=== PATIENT | female | born 1950 | race African-American/Black ===

== ENCOUNTER 2017-12-12 21:27 | Inpatient (IN) | payer OTHER, MEDICARE ==
[~2017-12-12] VITALS: Ht 154.9 cm; Wt 67.1 kg
--- NOTE | 2017-12-12 21:32 | ED NEURO DEFICIT/STROKE ---
History of Present Illness General Chief Complaint: Neuro Symptoms/ Deficit Stated Complaint: BIBA FOR EVAL ? STROKE Source: patient, family, old records, EMS Exam Limitations: no limitations Vital Signs & Intake/Output Vital Signs & Intake/Output Vital Signs Date Time Temp Pulse Resp B/P B/P Pulse O2 O2 Flow FiO2 Mean Ox Delivery Rate 12/125 98.7 74 16 206/92 96 Room Air 12/12 2246 98.5 68 16 218/98 12/12 2213 68 16 218/98 98 Room Air 12/12 2205 98.5 70 16 240/110 12/12 2150 98.5 70 16 240/110 95 Room Air 12/12 2128 85 18 188/110 96 Room Air Allergies Coded Allergies: No Known Allergies (12/12/17) Triage Nurses Notes Reviewed? yes HPI: Patient brought in by ambulance with complaints of inability to move the right side of her body. Patient states that at approximately 4:30 this afternoon she was sitting on her porch and noticed that her right side felt weak. Patient was able to get up and go inside and she laid in bed. Today she got up to go to the bathroom and realized that she cannot move the right side of her body and also should call 911. Patient states that she has a history of hypertension but she has been taking her medications and that she had a stroke 15 years ago and was treated at [facility] but she does not have any residual symptoms after that. Patient denies any headache or blurry vision. There is no nausea or vomiting. There is no chest pain or shortness of breath. Past History Travel History Traveled to [place] past 21 day No Medical History Any Pertinent Medical History? see below for history Neurological: CVA Cardiovascular: hypertension Surgical History Surgical History: none Psychosocial History Tobacco Use: Quit >30 days ago ETOH Use: occasional use Illicit Drug Use: denies illicit drug use Family History Hx Contributory? No Review of Systems Review of Systems Constitutional: Reports: no symptoms. EENTM: Reports: no symptoms. Respiratory: Reports: no symptoms. Cardiovascular: Reports: no symptoms. GI: Reports: no symptoms. Genitourinary: Reports: no symptoms. Musculoskeletal: Reports: no symptoms. Skin: Reports: no symptoms. Neurological/Psychological: Reports: see HPI. Hematologic/Endocrine: Reports: no symptoms. Immunologic/Allergic: Reports: no symptoms. All Other Systems: Reviewed and Negative Physical Exam Physical Exam General Appearance: well developed/nourished, alert, awake, anxious, moderate distress Head: atraumatic, normal appearance Eyes: Bilateral: PERRL, EOMI. Ears, Nose, Throat: moist mucous membrane, hearing grossly normal Neck: normal inspection, supple, full range of motion Respiratory: normal breath sounds, chest non-tender, no respiratory distress, lungs clear Cardiovascular: regular rate/rhythm, normal peripheral pulses Gastrointestinal: normal bowel sounds, soft, non-tender, no organomegaly Back: normal inspection Extremities: normal range of motion Psychiatric: awake, alert, oriented x 3 Cranial Nerves: normal hearing, normal speech, PERRL, facial droop Motor/Sensory: weak motor strength RUE, weak motor strength RLE Core Measures CVA/TIA Diagnosis: Yes NIH Stroke Scale NIH Stroke Scale Response Value Level of Consciousness alert 0 LOC Questions answers both correctly 0 LOC Commands obeys both correctly 0 Best Gaze normal 0 Visual Mckeon no visual loss 0 Facial Paresis partial 2 Motor Arm - Left no drift 0 Motor Arm - Right no movement 4 Motor Leg - Left no drift 0 Motor Leg - Right no movement 4 Limb Ataxia present in two limbs 2 Sensory normal 0 Best Language no aphasia 0 Dysarthria normal articulation 0 Extinction and Inattention no neglect 0 Total 12 Date Last Known Well: 12/12/17 Time Last Known Well: 1629 Symptom Start Date: 12/12/17 Symptom Start Time: 1629 tPA Risk/Benefit discussion I have discussed the risks, benefits, and alternatives of Alteplase treatment including: - If given promptly, can resolve or have major improvement in stroke symptoms. - Bleeding (hemorrhage) is the most common risk that can occur. - Bleeding may occur into the brain and cause~rn long term care serious disability~ including - this is rare, affecting about 1% of patients. - Alternative treatments with proven benefit for patients with stroke include aspirin and care in a specialized unit where staff members pay careful attention to a variety of basic aspects of care. tPA given? No Reason tPA not given Medical Contraindication Swallow Evaluation Pass Swallow eval date 12/12/17 Swallow eval time 2231 Sepsis Present: No Sepsis Focused Exam Completed? No Progress Differential Diagnosis: electrolyte imbalance, intracranial Hem., intracranial mass/tumor, stroke, subarachnoid Hem. Plan of Care: Orders Procedure Date/time Status Heart Healthy Diet 12/13 B Active ED Holding Orders 12/12 2320 Active Admit to inpatient 12/12 2320 Active Vital Signs 12/12 2320 Active Code Status 12/12 2320 Active Telemetry/Service Station Cashier 12/12 2129 Active URINALYSIS 12/12 2129 Complete TROPONIN LEVEL 12/12 2129 Complete PARTIAL THROMBOPLASTIN TIME 12/12 2129 Complete PROTHROMBIN TIME 12/12 2129 Complete COMPREHENSIVE METABOLIC PANEL 12/12 2129 Complete CBC WITHOUT DIFFERENTIAL 12/12 2129 Complete EKG 12/12 2129 Active Laboratory Tests 12/12/172229: Urine Color YEL, Urine Clarity CLEAR, Urine pH 8.0, Ur Specific [place] 1.025, Urine Protein 100 H, Urine Ketones NEG, Urine Nitrite NEG, Urine Bilirubin NEG, Urine Urobilinogen 0.2, Ur Leukocyte Esterase NEG, Ur Microscopic SEDIMENT EXAMINED, Urine RBC FEW H, Urine WBC 1-3 H, Ur Epithelial Cells FEW, Urine Bacteria RARE H, Urine Hemoglobin TRACE-INTACT, Urine Glucose NEG 12/12/172209: Anion Gap 7, Estimated GFR 50 L, BUN/Creatinine Ratio 15.5, Glucose 113 H, Calcium 8.8, Total Bilirubin 0.5, AST 27, ALT 25, Alkaline Phosphatase 76, Troponin I < 0.01, Total Protein 6.2 L, Albumin 3.3 L, Globulin 2.9, Albumin/ Globulin Ratio 1.1 12/12/172133: PT 11.7, INR 1.07, APTT 35, CBC w Diff MAN DIFF ORDERED, RBC 5.68 H, MCV 79.5 L, MCH 26.1 L, MCHC 32.9 L, RDW 18.8 H, MPV 9.3, Segmented Neutrophils 45, Lymphocytes 44, Monocytes 10 H, Eosinophils 1, Platelet Estimate VERIFIED BY SMEAR, Anisocytosis 1+, Target Cells FEW, Fld Total RBCs Counted 100 Diagnostic Imaging: Viewed by Me: Radiology Read, CT Scan. Discussed w/RAD: Radiology Read, CT Scan. Pre-Hospital EKG: NSR, LVH Initial ED EKG: NSR, LVH, nonspecific ST T wave chg Rhythm Strip: normal sinus rhythm Comments: Discussed with Dr. Cano, patient is not a candidate for TPA given the timing. Her symptoms are consistent with small vessel disease and a quarter infarct given the fact that she has normal speech and if this was a true left middle cerebral artery infarction then she would be a phasic or have severe dysarthria. PATIENT: DEANN SIMMONS PRESENT AGE: 67 PATIENT ACCOUNT NO: [id number] : 52 LOCATION: [facility] ORDERING PHYSICIAN: Silvio Carroll MD SERVICE DATE: 12/12/17 EXAM TYPE: CAT - CT HEAD WO IV CONTRAST EXAMINATION: CT HEAD WITHOUT CONTRAST CLINICAL INFORMATION: Evaluate for acute stroke. COMPARISON: None TECHNIQUE: Contiguous axial imaging was performed from the skull base to vertex without intravenous administration of contrast. DLP: 646.3 mGy-cm FINDINGS: There is encephalomalacia in the posteromedial left parietal lobe and left occipital lobe from a chronic infarct. Moderate to severe chronic white matter microangiopathic changes are present. There is no evidence of acute intracranial hemorrhage or territorial infarction. No abnormal mass effect or midline shift is seen. No extra-axial fluid collections are identified. The ventricles are normal in size. The osseous structures and soft tissues are normal. The mastoid air cells and visualized portions of the paranasal sinuses are well aerated. IMPRESSION: No acute intracranial hemorrhage or territorial infarction. Chronic infarct in the posteromedial left parietal lobe and left occipital lobe. Given the extent of severe chronic white matter microangiopathy, the possibility of a focal acute ischemic process cannot be ruled out. Imaging findings discussed with Dr. Carroll at 9:54 PM on 12/12/2017. DICTATED BY: Silvio Vuong MD DATE/TIME DICTATED:12/12/172145 FRONT END SOFTWARE ENGINEER:BUDDY DATE/TIME TRANSCRIBED:12/12/172145 CONFIDENTIAL, DO NOT COPY WITHOUT APPROPRIATE AUTHORIZATION. <Electronically signed in Other Vendor System> SIGNED BY: Silvio Vuong MD 2154 Departure Departure Disposition: STILL A PATIENT Condition: Stable Clinical Impression Primary Impression: CVA (cerebral vascular accident) Departure Forms: Customer Survey General Discharge Information Admission Note Spoke With: Fernando Patel MD Documentation of Exam: Documentation of any treatments & extenuating circumstances including Concerns Regarding Discharge (functional status, medication knowledge or non-compliance, living conditions, etc.) that warrant an admission rather than observation: [ ADMIT TO TELE, NEURO CONSULT, PHYSICAL THERAPY AND OT CONSULT, ASA, B/P CONTROL BUT ALLOW PASSIVE HYPERTENSION, MRI]
[2017-12-12 21:46] LABS: HEMATOCRIT 45.1 % (37-47); MEAN CORPUSCULAR HGB 26.1 PG (27.0-31.0); MEAN CORPUSCULAR HGB CONC 32.9 G/DL (33.0-37.0); MEAN CORPUSCULAR VOLUME 79.5 FL (81.0-99.0); MEAN PLATELET VOLUME 9.3 FL (7.4-10.4); PLATELET COUNT 284 /CUMM (130-400); RBC DISTRIBUTION WIDTH 18.8 % (11.5-14.5); RED BLOOD CELL CT 5.68 /CUMM (4.20-5.40)
[2017-12-12 21:55] LABS: PT 11.7 SEC (9.4-12.5); PTT 35 SEC (25-37)
--- NOTE | 2017-12-12 21:55 | CT SCAN REPORT ---
EXAMINATION: CT HEAD WITHOUT CONTRAST CLINICAL INFORMATION: Evaluate for acute stroke. COMPARISON: None TECHNIQUE: Contiguous axial imaging was performed from the skull base to vertex without intravenous administration of contrast. DLP: 646.3 mGy-cm FINDINGS: There is encephalomalacia in the posteromedial left parietal lobe and left occipital lobe from a chronic infarct. Moderate to severe chronic white matter microangiopathic changes are present. There is no evidence of acute intracranial hemorrhage or territorial infarction. No abnormal mass effect or midline shift is seen. No extra-axial fluid collections are identified. The ventricles are normal in size. The osseous structures and soft tissues are normal. The mastoid air cells and visualized portions of the paranasal sinuses are well aerated. IMPRESSION: No acute intracranial hemorrhage or territorial infarction. Chronic infarct in the posteromedial left parietal lobe and left occipital lobe. Given the extent of severe chronic white matter microangiopathy, the possibility of a focal acute ischemic process cannot be ruled out. Imaging findings discussed with Dr. Carroll at 9:54 PM on 12/12/2017.
--- NOTE | 2017-12-12 23:17 | RADIOLOGY REPORT ---
EXAMINATION: XR PORTABLE CHEST CLINICAL INFORMATION: Cough. COMPARISON: None TECHNIQUE: Portable frontal view of the chest was obtained. 10:39 PM FINDINGS: The heart size is enlarged. There is calcifications of aortic arch. The central hilar pulmonary vessels are prominent with increased lung markings suggesting interstitial edema versus chronic interstitial lung markings. There is no pleural effusion. There is no focal consolidation. IMPRESSION: Cardiomegaly with central pulmonary vascular prominence and increased lung markings, likely interstitial edema. There is no focal consolidation.
--- NOTE | 2017-12-13 00:29 | History & Physical ---
Gordo Mercado 12/13/17 0028: General Information and HPI MD Statement: I have seen and personally examined DEANN SIMMONS and documented this H&P. The patient is a 67 year old F who presented with a patient stated chief complaint of [Right-sided weakness]. Source of Information: patient Exam Limitations: clinical condition History of Present Illness: 67 year old female with pmh of HTN as well as prior stroke 15 years ago without residual deficits, presents to the ED today with new-onset right-sided weakness and slurring of speech. The patient had been sitting at home when she first noticed numbness on her right side around 0, which soon resolved. She then went to lie down and when she awoke around 2029, she could not move her right side and called an ambulance. She denied headache, loss of vision, word-finding difficulty. She reports that she regularly takes her blood pressure medicine, but admits that she ran out and had been unable to get a refill for the past month. She is a current smoker, recently cut down to 3 cigarettes per day but previously smoked ~2 packs per week for 30 years. She admits to occasional ETOH use, drinking wine coolers on special occasions, admits to former cocaine use. Allergies/Medications Allergies: Coded Allergies: No Known Allergies (12/12/17) Home Med list Amlodipine Besylate (Norvasc) 10 MG TABLET 1 TAB PO DAILY HTN (Reported) Furosemide (Lasix) 40 MG TABLET 1 TAB PO DAILY HTN (Reported) Losartan (Cozaar) 100 MG TABLET 1 TAB PO DAILY HTN (Reported) Compliance With Home Meds: POOR Past History Travel History Traveled to [place] past 21 day No Medical History Neurological: CVA EENT: NONE Cardiovascular: hypertension Respiratory: asthma, COPD, pneumonia Gastrointestinal: NONE Hepatic: NONE Renal: NONE Musculoskeletal: NONE Psychiatric: substance abuse Endocrine: NONE Surgical History Surgical History: none Past Family/Social History Psychosocial History ETOH Use: occasional use Illicit Drug Use: denies illicit drug use Review of Systems Review of Systems Constitutional: Reports: weakness. Denies: chills, fever. Exam & Diagnostic Data Last 24 Hrs of Vital Signs/I&O Vital Signs Date Time Temp Pulse Resp B/P B/P Pulse O2 O2 Flow FiO2 Mean Ox Delivery Rate 12/13 0250 72 222/96 12/13 0206 96.4 94 20 222/96 96 Room Air 12/12 2330 72 16 190/90 98 Room Air 12/12 2255 98.7 74 16 206/92 96 Room Air 12/12 2246 98.5 68 16 218/98 12/12 2213 68 16 218/98 98 Room Air 12/12 2205 98.5 70 16 240/110 12/12 2150 98.5 70 16 240/110 95 Room Air 12/12 2130 98 Room Air 12/12 2128 85 18 188/110 96 Room Air Intake & Output 12/13 0800 12/13 0000 12/12 1600 Intake Total Output Total Balance Patient 65.771 kg Weight Physical Exam General Appearance Alert, Oriented X3, Cooperative, No Acute Distress HEENT PERRLA, Mild facial droop on the R Neck Supple, No JVD, +2 Carotid Pulse wo Bruit Cardiovascular Regular Rate, Normal S1, Normal S2, No Murmurs Lungs Clear to Auscultation, Normal Air Movement Abdomen Normal Bowel Sounds, Soft, No Tenderness Neurological Sensation Intact, RUE strength 2/5, RLE 0/5; LUE and LLE 5/5 Extremities No Clubbing, No Cyanosis, No Edema Last 24 Hrs of Labs/Jf: Laboratory Tests 12/12/172229: Urine Color YEL, Urine Clarity CLEAR, Urine pH 8.0, Ur Specific [place] 1.025, Urine Protein 100 H, Urine Ketones NEG, Urine Nitrite NEG, Urine Bilirubin NEG, Urine Urobilinogen 0.2, Ur Leukocyte Esterase NEG, Ur Microscopic SEDIMENT EXAMINED, Urine RBC FEW H, Urine WBC 1-3 H, Ur Epithelial Cells FEW, Urine Bacteria RARE H, Urine Hemoglobin TRACE-INTACT, Urine Glucose NEG 12/12/172209: Anion Gap 7, Estimated GFR 50 L, BUN/Creatinine Ratio 15.5, Glucose 113 H, Calcium 8.8, Total Bilirubin 0.5, AST 27, ALT 25, Alkaline Phosphatase 76, Troponin I < 0.01, Total Protein 6.2 L, Albumin 3.3 L, Globulin 2.9, Albumin/ Globulin Ratio 1.1 12/12/172133: PT 11.7, INR 1.07, APTT 35, CBC w Diff MAN DIFF ORDERED, RBC 5.68 H, MCV 79.5 L, MCH 26.1 L, MCHC 32.9 L, RDW 18.8 H, MPV 9.3, Segmented Neutrophils 45, Lymphocytes 44, Monocytes 10 H, Eosinophils 1, Platelet Estimate VERIFIED BY SMEAR, Anisocytosis 1+, Target Cells FEW, Fld Total RBCs Counted 100 Assessment/Plan Assessment: 67 year old female PMH of HTN and previous stroke 15 years ago without residual deficits presents with R-sided weakness and slurring of speech, likely acute ischemic stroke. CT Head: No acute intracranial hemorrhage or territorial infarction. Chronic infarct in the posteromedial left parietal lobe and left occipital lobe. Possibility of a focal acute ischemic process cannot be ruled out. Problems: #Acute ischemic stroke #HTN #Active tobacco use Plan: -Admit to telemetry -Patient passed bedside swallow eval, ok to start diet -Follow-up speech swallow eval -Neurology consult -Permissive hypertension -MRA head & neck--not done Tuesdays so repeat CT head to monitor for evolving stroke -Nicotine patch & smoking cessation Full code Heart healthy diet ALPS & on Plavix for DVT ppx As Ranked By This Provider Problem List: 1. CVA (cerebral vascular accident) 2. Hypertension Core Measures/Misc (12/12) Acute Coronary Syndrome ACS Diagnosis: No Congestive Heart Failure Congestive Heart Failure Diagnosis No Cerebrovascular Accident CVA/TIA Diagnosis: Yes NIH Stroke Scale: Total 10 Date Last Known Well: 12/12/17 Time Last Known Well: 1630 Symptom Start Date: 12/12/17 Symptom Start Time: 1630 tPA Risk/Benefit discussion I have discussed the risks, benefits, and alternatives of Alteplase treatment including: - If given promptly, can resolve or have major improvement in stroke symptoms. - Bleeding (hemorrhage) is the most common risk that can occur. - Bleeding may occur into the brain and cause~correction serious disability~ including - this is rare, affecting about 1% of patients. - Alternative treatments with proven benefit for patients with stroke include aspirin and care in a specialized unit where staff members pay careful attention to a variety of basic aspects of care. tPA given? No Reason tPA not ordered Medical Contraindication (outside of window) Swallow Evaluation Pass Current/Past Hx AFib/AFlutter No Comment Given aspirin, plavix, lipitor VTE (View Protocol) VTE Risk Factors Age>40 No Mechanical VTE Prophylaxis d/t N/A MechProphylax Ordered No VTE Pharm Prophylaxis d/t NA PharmProphylax ordered Sepsis (View protocol) Sepsis Present: No If YES complete Sepsis Event Note If YES complete Sepsis Event Note Fernando Patel 12/13/17 0250: Core Measures/Misc (12/12) Sepsis (View protocol) If YES complete Sepsis Event Note If YES complete Sepsis Event Note Attending MD Review Statement Attending Statement Attending MD Statement: examined this patient, discuss w/resident/PA/[employer]ALL[employer] PEN CARTRIDGE TESTER, agreed w/resident/PA/[employer]ALL[employer] PEN CARTRIDGE TESTER Attending Assessment/Plan: Addendum by . Patient was seen and examined at bedside today ( 12/13/17 ) at !;30Am. Reviewed the history physical done by the resident. Reviewed the past medical family, family, social history. ROS: 10 point system reviewed and negative except as described above. Exam: Alert, awake, has slurred speech. Loss of right nasolabial fold. urrently her power is 0/5 in right leg, and 2/ 5 the proximal right upper extremity, 0/5 distal extremity, normal sensation. Increased reflexes right upper and lower extremity. Plantar reflex was withdrawal. See the resident note for full examination. X-ray, EKG, CT brain, labs reviewed. Assessment and plan: #Acute ischemic stroke involving posteromedial left parietal lobe and left occipital lobe. Causing right hemiparesis. Due to uncontrolled hypertension. Patient states she was taking aspirin daily. She was out of window for TPA on presentation as per the ER. Spoke to neurology from ER. For now will continue on aspirin, Plavix. Also high-dose statin. Permissive hypertension, not treated unless blood pressure is 220/100. C. She passed a swallow evaluation in the ER. will get PT OT evaluation in a.m., also get spell evaluation by swallow therapist. Needs risk factor modification on the long run. Neurology to see in the morning. Get carotid Dopplers in the morning. Patient needs MRA neck and brain, MRA brain when that can be done. Check A1c, lipid panel. Monitor on telemetry. #Hypertension-patient was not taking her blood pressure medications regularly. I think her stroke is likely due to uncontrolled hypertension due to noncompliance. Can resume home medications after 48 hours, also add additional medications if needed for better blood pressure control. #Smoker smoking cessation was advised, give nicotine patch. Reviewed with the resident. Agree with the rest of the plan as per resident's note. Dr.Ravinder Mary Jane MD. Hospitalist. Pager: [phone], cell: [phone]. Yusuf Bender MD 12/13/17 0329: Core Measures/Misc (12/12) Sepsis (View protocol) If YES complete Sepsis Event Note If YES complete Sepsis Event Note Resident Review Statement Resident Statement: examined this patient, discussed with digital intern, agreed with digital intern, reviewed EMR data (avail), amended to note Other Findings: Patient is a 67-year-old female with past medical history of stroke 15 years ago without residual side effects, hypertension, asthma presenting this admission with chief complaint of inability to move right upper and lower extremities. Patient reports that at approximately 4:30 in the afternoon on day of admission she experienced inability to move her right arm and right leg which she stated was transient. After which she continued her normal routine and went to bed at approximately 8:30 PM and awoke an hour later to find that she was unable to move her right side and was also slurring her speech. Patient denies any numbness or tingling, dysphagia, change in vision, word finding difficulty, headache, nausea/vomiting. Denies fever, chills, chest pain, shortness of breath, palpitations, dizziness/lightheadedness, abdominal pain, dysuria/ hematuria, bowel or bladder incontinence, constipation/diarrhea. Patient reports that she has a history of hypertension for which she is on amlodipine, losartan, furosemide. Reports that she ran out of her medications one month prior to admission however didn't take some old prescription however does not remember what medication. Patient states that her blood pressure over the past few days has been elevated to the 190s systolic. Neurology was consulted in the ED and patient was not given TPA as she was out of the window. Patient in the ED received hydralazine 10 mg, labetalol 10 mg, aspirin 325 mg Past medical history: As above Social history: Patient is a current 1 pack per day smoker, occasional alcohol use, previous history of cocaine use Physical exam and labs/imaging as above Patient is a 67-year-old -Swiss female who is a current every day smoker with past medical history significant for uncontrolled hypertension and history of previous stroke without residual effects presenting this admission with a lacunar infarct (likely secondary to uncontrolled hypertension) with right hemiparesis, right-sided facial droop and dysarthria and CT scan showing no acute infarct/hemorrhage but a chronic infarct in the posteromedial left parietal lobe and left occipital lobe. Plan: Admit to telemetry Continuous telemetry monitoring Neurochecks every 2 hours Aspiration and fall precautions A bedside swallow evaluation was performed which patient passed Formal swallow eval placed Neuro consult placed PT/OT consulted Patient received high-dose aspirin 1 in the ED. Patient was started on Plavix and aspirin was continued. Patient was started on high-dose atorvastatin 80 mg daily Smoking cessation counseling Nicotine patch Follow-up lipid panel and hemoglobin A1c MRA of the head and neck ordered. However as this likely will not happen today consider repeat CT head to evaluate for evolving stroke. Carotid Dopplers have been ordered. Continue to monitor blood pressure and allow for permissive hypertension. Resume home blood pressure medications after 48 hours. Code: Full code Diet: Heart healthy DVT prophylaxis: Alps
[2017-12-13 05:49] LABS: HEMATOCRIT 43.9 % (37-47); MEAN CORPUSCULAR HGB 26.1 PG (27.0-31.0); PLATELET COUNT 272 /CUMM (130-400); RBC DISTRIBUTION WIDTH 18.5 % (11.5-14.5); RED BLOOD CELL CT 5.56 /CUMM (4.20-5.40)
[2017-12-13] MEDS ORDERED: NORVASC10 M1 PO (07:29)
[2017-12-13] MEDS ORDERED: COZAAR100 M1 PO (07:30)
[2017-12-13] MEDS ORDERED: LASIX40 M1 PO (07:31)
--- NOTE | 2017-12-13 09:36 | Cons- Neurology ---
General Information and HPI Consulting Request Date of Consult: 12/13/17 Requested By: Ana Rossi MD Reason for Consult: CVA Source of Information: patient History of Present Illness: 67-year-old right-handed woman states she was sitting on her porch around 430 yesterday when her right side became weak. Symptoms subsequently improved over a matter of minutes but later recurred/worsened around 9 pm and prompted her to come to the ED. Speeech has been slurred. She has a history of prior left parietal and occipital strokes from which she clinically recovered. She states that she takes aspirin on a daily basis. She states that she takes antihypertensive medications but missed several doses recently. she is a longtime cigarette smoker. Urine tox screen was positive for cocaine. She states she used cocaine several days ago at a alliance party. She states that she was planning to go to [facility] to help her overcome this apparent addiction. Lives w/ landlord. 5 entrance steps w/ railing. Allergies/Medications Allergies: Coded Allergies: No Known Allergies (12/12/17) Home Med List: Amlodipine Besylate (Norvasc) 10 MG TABLET 1 TAB PO DAILY HTN (Reported) Furosemide (Lasix) 40 MG TABLET 1 TAB PO DAILY HTN (Reported) Losartan (Cozaar) 100 MG TABLET 1 TAB PO DAILY HTN (Reported) Current Medications: Current Medications Sig/[place] Start time Last Medication Dose Route Stop Time Status Admin Acetaminophen 650 MG Q6P PRN 12/13 0115 AC PO Acetaminophen 1,000 MG Q6 PRN 12/13 0115 AC IV Albuterol Sulfate 3 ML ONCE ONE 12/12 2345 DC 12/12 INH 12/12 2346 2342 Amlodipine Besylate 10 MG DAILY 12/13 0745 AC PO Aspirin 325 MG ONCE ONE 12/12 2245 DC 12/12 PO 12/12 2246 2246 Aspirin 0 .STK-MED ONE 12/12 2244 DC PO Aspirin Buffered 81 MG DAILY 12/13 0900 DC PO Aspirin Buffered 325 MG DAILY 12/13 0900 AC PO Atorvastatin Calcium 80 MG 1700 12/13 1700 DC PO Atorvastatin Calcium 80 MG 1700 12/13 0700 AC PO Clopidogrel Bisulfate 0 .STK-MED ONE 12/13 0250 DC PO Clopidogrel Bisulfate 75 MG ONCE ONE 12/13 0230 DC 12/13 PO 12/13 0231 0250 Dextrose/Sodium 1,000 ML SEE RATE 12/13 0115 DC Chloride IV Docusate Sodium 100 MG DAILY NEEDED 12/13 0115 AC PO Hydralazine HCl 10 MG ONCE ONE 12/12 2244 DC 12/12 IV 12/12 Hydralazine HCl 0 .STK-MED ONE 12/12 224 DC .ROUTE Labetalol HCl 0 .STK-MED ONE 12/13 0250 DC IV Labetalol HCl 10 MG ONCE ONE 12/13 0230 CAN IV 12/13 0231 Labetalol HCl 10 MG ONCE ONE 12/13 0230 DC 12/13 IV 12/13 0231 0250 Labetalol HCl 0 .STK-MED ONE 12/12 2206 DC IV Labetalol HCl 10 MG ONCE ONE 12/12 2199 DC 12/12 IV 12/12 Melatonin 0 .STK-MED ONE 12/13 0157 DC PO Melatonin 5 MG AT BEDTIME 12/13 0115 AC 12/13 PO 0156 Nicotine 14 MG DAILY 12/13 0900 AC TOP Polyethylene Glycol 17 GM AT BEDTIME 12/13 2100 AC PO Potassium Chloride 20 MEQ ONCE ONE 12/13 0730 DC PO 12/13 0731 Past History Travel History Traveled to [place] past 21 day No Medical History Neurological: CVA EENT: NONE Cardiovascular: hypertension Respiratory: asthma, COPD, pneumonia Gastrointestinal: NONE Hepatic: NONE Renal: NONE Musculoskeletal: NONE Psychiatric: NONE (cocaine), substance abuse Endocrine: NONE Surgical History Surgical History: none Psychosocial History Where Do You Live? Home Smoking Status: Current Everyday Smoker ETOH Use: occasional use Illicit Drug Use: cocaine (on tox screen) Exam & Diagnostic Data Vital Signs and I&O Vital Signs Date Time Temp Pulse Resp B/P B/P Pulse O2 O2 Flow FiO2 Mean Ox Delivery Rate 12/13 0814 97.6 76 18 194/94 98 Room Air 12/13 0515 96.8 71 18 210/102 99 Room Air 12/13 0345 72 20 192/100 92 Room Air 12/13 0250 72 222/96 12/13 0206 96.4 94 20 222/96 96 Room Air 12/12 2330 72 16 190/90 98 Room Air 12/12 2255 98.7 74 16 206/92 96 Room Air 12/12 2246 98.5 68 16 218/98 12/123 68 16 218/98 98 Room Air 12/125 98.5 70 16 240/110 12/12 2150 98.5 70 16 240/110 95 Room Air 12/12 2130 98 Room Air 12/12 2128 85 18 188/110 96 Room Air Intake & Output 12/13 1600 12/13 0800 12/13 0000 Intake Total Output Total Balance Patient 145 lb 145 lb Weight Physical Exam: PHYSICAL EXAMINATION: nl = normal NT or blank = not tested GENERAL Appearance: nl Head: nl Eyes: nl ENT: nl Neck: nl Carotids: nl Lungs: nl Heart: nl Extremities: nl NEUROLOGIC MENTAL STATUS Level of consciousness: nl Orientation: nl Attention / Concentration: nl Fund of Knowledge: nl Speech / Language: Mild to moderate dysarthria NEUROLOGIC CRANIAL NERVES I: Olfaction: NT II: Optic nerves: nl Visual abrker: nl III: Pupils: nl Levator palpebrae: nl III, IV, : Ocular alignment: nl Extraocular motility: nl Pursuits/ saccades: nl V: Facial sensation: nl Masseter/Pterygoids: nl VII: Facial Motor: Mild to moderate right lower facial weakness VIII: Hearing (finger rub): nl IX, X: Uvula and palate: nl XI: SCM, Upper trap.: nl XII: Tongue: nl MOTOR / NEUROMUSCULAR Bulk: nl Tone: nl on the left, moderately reduced on the right Strength: nl L, 2/5 R long finger flexors, 1 to 2- at R hip & shoulder, o/w 0/5 Rapid alternating movements: nl L, unable R Fine motor movements: nl L, unable R Abnormal / involuntary movements: none CEREBELLAR / COORDINATION: intact L, unable R SENSATION: intact to lt touch PLANTARS: flexor L, extensor R DTRs trace to 1+ L, 0 R GAIT: NT Last 48 Hours of Lab Results: Laboratory Tests 12/13 12/13 0600 0534 Chemistry Sodium (137 - 145 mmol/L) 141 Potassium (3.5 - 5.1 mmol/L) 3.4 L Chloride (98 - 107 mmol/L) 111 H Carbon Dioxide (22 - 30 mmol/L) 25 Anion Gap (5 - 16) 4 L BUN (7 - 17 mg/dL) 15 Creatinine (0.5 - 1.0 mg/dL) 1.0 Estimated GFR (>60 ml/min) 56 L BUN/Creatinine Ratio (7 - 25 %) 15.0 Hemoglobin A1c (4.2 - 5.8 %) Triglycerides (<150 mg/dL) 100 Cholesterol (<200 MG/DL) 172 LDL Cholesterol, Calc (65 - 129 mg/dL) 86 HDL Cholesterol (40 - 60 mg/dL) 66 H Cholesterol/HDL Ratio (0.00 - 4.23 %) 3 Hematology CBC w Diff MAN DIFF ORDERED WBC (4.8 - 10.8 /CUMM) 8.0 RBC (4.20 - 5.40 /CUMM) 5.56 H Hgb (12.0 - 16.0 G/DL) 14.5 Hct (37 - 47 %) 43.9 MCV (81.0 - 99.0 FL) 79.0 L MCH (27.0 - 31.0 PG) 26.1 L MCHC (33.0 - 37.0 G/DL) 33.0 RDW (11.5 - 14.5 %) 18.5 H Plt Count (130 - 400 /CUMM) 272 MPV (7.4 - 10.4 FL) 9.0 Segmented Neutrophils (42.2 - 75.2 %) 53 Lymphocytes (20.5 - 51.1 %) 39 Monocytes (1.7 - 9.3 %) 6 Eosinophils (0 - 5.0 %) 2 Platelet Estimate (ADEQUATE) ADEQUATE Normochromic RBCs VERIFIED Anisocytosis 1+ Microcytic Cells 1+ Ovalocytes FEW Miscellaneous Ref Lab Test Result Pending Other Body Source Fld Total RBCs Counted (%) 100 /17 12/12 2230 2210 Chemistry Sodium (137 - 145 mmol/L) 141 Potassium (3.5 - 5.1 mmol/L) 3.3 L Chloride (98 - 107 mmol/L) 108 H Carbon Dioxide (22 - 30 mmol/L) 27 Anion Gap (5 - 16) 7 BUN (7 - 17 mg/dL) 17 Creatinine (0.5 - 1.0 mg/dL) 1.1 H Estimated GFR (>60 ml/min) 50 L BUN/Creatinine Ratio (7 - 25 %) 15.5 Glucose (65 - 99 mg/dL) 113 H Calcium (8.4 - 10.2 mg/dL) 8.8 Total Bilirubin (0.2 - 1.3 mg/dL) 0.5 AST (14 - 36 U/L) 27 ALT (9 - 52 U/L) 25 Alkaline Phosphatase (<127 U/L) 76 Troponin I (< 0.11 ng/ml) < 0.01 Total Protein (6.3 - 8.2 g/dL) 6.2 L Albumin (3.5 - 5.0 g/dL) 3.3 L Globulin (1.9 - 4.2 gm/dL) 2.9 Albumin/Globulin Ratio (1.1 - 2.2 %) 1.1 Toxicology Urine Opiates Screen (>2000 NG/ML) < 100 Methadone Screen (>300 NG/ML) < 40 Barbiturate Screen (>200 NG/ML) < 60 Ur Phencyclidine Scrn (>25 NG/ML) < 6.00 Amphetamines Screen (>1000 NG/ML) < 100 U Benzodiazepines Scrn (>200 NG/ML) < 85 Urine Cocaine Screen (>300 NG/ML) > 1000 H Urine Cannabis Screen (>50 NG/ML) < 5.00 Urines Urine Color (YEL,AMB,STR) YEL Urine Clarity (CLEAR) CLEAR Urine pH (5.0 - 8.0) 8.0 Ur Specific [place] (1.001 - 1.035) 1.025 Urine Protein (NEG,<30 MG/DL) 100 H Urine Ketones (NEG) NEG Urine Nitrite (NEG) NEG Urine Bilirubin (NEG) NEG Urine Urobilinogen (0.1 - 1.0 EU/dl) 0.2 Ur Leukocyte Esterase (NEG) NEG Ur Microscopic SEDIMENT EXAMINED Urine RBC (0 - 5 /HPF) FEW H Urine WBC (0 - 2 /HPF) 1-3 H Ur Epithelial Cells (NONE,FEW) FEW Urine Bacteria (NEG/NONE) RARE H Urine Hemoglobin (NEG) TRACE-INTACT Urine Glucose (N MG/DL) NEG 12/12 2134 Coagulation PT (9.4 - 12.5 SEC) 11.7 INR (0.90 - 1.19) 1.07 APTT (25 - 37 SEC) 35 Hematology CBC w Diff MAN DIFF ORDERED WBC (4.8 - 10.8 /CUMM) 7.0 RBC (4.20 - 5.40 /CUMM) 5.68 H Hgb (12.0 - 16.0 G/DL) 14.8 Hct (37 - 47 %) 45.1 MCV (81.0 - 99.0 FL) 79.5 L MCH (27.0 - 31.0 PG) 26.1 L MCHC (33.0 - 37.0 G/DL) 32.9 L RDW (11.5 - 14.5 %) 18.8 H Plt Count (130 - 400 /CUMM) 284 MPV (7.4 - 10.4 FL) 9.3 Segmented Neutrophils (42.2 - 75.2 %) 45 Lymphocytes (20.5 - 51.1 %) 44 Monocytes (1.7 - 9.3 %) 10 H Eosinophils (0 - 5.0 %) 1 Platelet Estimate (ADEQUATE) VERIFIED BY SMEAR Anisocytosis 1+ Target Cells FEW Other Body Source Fld Total RBCs Counted (%) 100 Imaging/Other Studies: PATIENT: DEANN SIMMONS PRESENT AGE: 67 PATIENT ACCOUNT NO: [id number] : 52 LOCATION: [facility] ORDERING PHYSICIAN: Silvio Carroll MD SERVICE DATE: 12/12/17 EXAM TYPE: CAT - CT HEAD WO IV CONTRAST EXAMINATION: CT HEAD WITHOUT CONTRAST CLINICAL INFORMATION: Evaluate for acute stroke. COMPARISON: None TECHNIQUE: Contiguous axial imaging was performed from the skull base to vertex without intravenous administration of contrast. DLP: 646.3 mGy-cm FINDINGS: There is encephalomalacia in the posteromedial left parietal lobe and left occipital lobe from a chronic infarct. Moderate to severe chronic white matter microangiopathic changes are present. There is no evidence of acute intracranial hemorrhage or territorial infarction. No abnormal mass effect or midline shift is seen. No extra-axial fluid collections are identified. The ventricles are normal in size. The osseous structures and soft tissues are normal. The mastoid air cells and visualized portions of the paranasal sinuses are well aerated. IMPRESSION: No acute intracranial hemorrhage or territorial infarction. Chronic infarct in the posteromedial left parietal lobe and left occipital lobe. Given the extent of severe chronic white matter microangiopathy, the possibility of a focal acute ischemic process cannot be ruled out. Imaging findings discussed with Dr. Carroll at 9:54 PM on 12/12/2017. DICTATED BY: Silvio Vuong MD DATE/TIME DICTATED:12/12/172145 PROJECTION CAMERA OPERATOR:BUDDY DATE/TIME TRANSCRIBED:12/12/172145 Assessment/Plan Assessment: Acute ischemic stroke in a 67-year-old right-handed woman with multiple stroke risk factors, including hypertension, smoking, cocaine use, prior strokes Recommendations: Brain MRI without contrast Echocardiogram Gradual normalization of blood pressure over the next few days Continue dual antiplatelet therapy with aspirin and Plavix Continue statin therapy Smoking cessation Substance abuse counseling Stroke education DVT prophylaxis Speech and swallow evaluation PT and OT She appears to be an excellent candidate for the [facility] in Issue Consult Acknowledgment - Thank you for your consult request.
--- NOTE | 2017-12-13 10:38 | PN- Att Addend ---
Attending Addendum Attending Brief Note 67-year-old female past medical history of stroke with residual weakness, COPD who woke up with right upper extremity weakness and appears to have a hemispheric CVA clinically. CT is negative. We are allowing for permissive hypertension but given the persistently elevated blood pressure starting low- dose Norvasc. But considering her in aspirin failure and starting on Plavix, neurology consult, PT eval, echo and follow closely.
--- NOTE | 2017-12-13 13:32 | ULTRASOUND REPORT ---
EXAMINATION: DUPLEX BILATERAL CAROTID ULTRASOUND CLINICAL INFORMATION: There is a 67-year-old female with history of tobacco use, hypertension, hyperlipidemia, carotid artery disease, amaurosis fugax, syncope, TIA, CVA. COMPARISON: None. TECHNIQUE: Real-time ultrasound and Doppler techniques (integrating B-mode 2D vascular images, Doppler spectral analysis and color flow Doppler imaging) were utilized to interrogate the extracranial carotid and vertebral arteries bilaterally. The degree of stenosis determined by criteria similar to NASCET. FINDINGS: Right side: 1. Minimal amount of heterogeneous plaque is seen in the ECA/ICA region. 2. The common carotid artery velocity is 50 cm/s. 3. The internal carotid artery velocities are 66 cm/s systolic and 11 cm/s diastolic. 4. The external carotid artery velocity is 6-7 cm/s. Left side: 1. Moderate amount of heterogeneous plaque is seen in the ECA/ICA region. 2. The common carotid artery velocity is 45 cm/s. 3. The internal carotid artery velocities are 54 cm/s systolic and 14 cm/s diastolic. 4. The external carotid artery velocity is 74 cm/s. ADDITIONAL FINDINGS: 1. The vertebral arteries show antegrade flow. 2. The brachial artery pressures are symmetric. IMPRESSION: 1. RIGHT: Minimal, nonhemodynamically significant stenosis of the proximal right internal carotid artery corresponding to a 0-49% stenosis by velocity criteria. 2. LEFT: Minimal, nonhemodynamically significant stenosis of the proximal left internal carotid artery corresponding to a 0-49% stenosis by velocity criteria. 3. No evidence for hemodynamically significant stenosis in the external carotid arteries.
[2017-12-13 14:00] VITALS: BP 204/94
[2017-12-13 14:52] VITALS: BP 210/98
--- NOTE | 2017-12-13 19:38 | ECHOCARDIOGRAM REPORT ---
DEANN SIMMONS Age: 67 : 1950 Gender: F Exam Date: 12/13/2017 08:50 Exam Location: ER Ht (in): 61 Wt (lb): 145 BSA: 1.70 BP: 194 / 94 Ordering Physician: Yusuf Bender MD Referring Physician: Yusuf Bender MD Technologist: Piter Bueno [facility] Room Number: 11 Indications: Stroke Rhythm: Sinus Technical Quality: Good FINDINGS Left Ventricle Severe concentric left ventricular hypertrophy. Normal size left ventricle. Left ventricular ejection fraction is estimated at 55 %. No obvious regional wall motion abnormalities. Abnormal relaxation filling pattern of the left ventricle for age (stage 1 diastolic dysfunction). Right Ventricle Normal right ventricular size and function. Right Atrium Normal right atrial size. Left Atrium Normal left atrial size. Mitral Valve Moderate mitral annular calcification. Mitral valve thickened. Trace mitral regurgitation. Aortic Valve Aortic valve mildly thickened.no aortic stenosis. Mild aortic regurgitation. Tricuspid Valve Tricuspid valve not well visualized, grossly normal. Trace tricuspid regurgitation. Pulmonic Valve Pulmonic valve not well visualized, grossly normal. Trace pulmonic regurgitation. Pericardium Small pericardial effusion. No echo evidence of tamponade. Great Vessels Normal size aortic root. CONCLUSIONS Severe concentric left ventricular hypertrophy. Left ventricular ejection fraction is estimated at 55 %. Abnormal relaxation filling pattern of the left ventricle for age (stage 1 diastolic dysfunction). Trace mitral regurgitation. Mild aortic regurgitation. Trace tricuspid regurgitation. Chaparro Howard M.D. (Electronically Signed) Final Date: 13 December 2017 19:32 MEASUREMENTS (Male / Female) Normal Values 2D ECHO LV Diastolic Diameter PLAX 4.5 cm 4.2 - 5.9 / 3.9 - 5.3 cm LV Systolic Diameter PLAX 3.2 cm 2.1 - 4.0 cm LV Fractional Shortening PLAX 28.9 % 25 - 46 % LV Ejection Fraction 2D Teich 55.7 % IVS Diastolic Thickness 2.3 cm LVPW Diastolic Thickness 2.0 cm LV Relative Wall Thickness 1.0 RV Internal Dim ED PLAX 2.0 cm 1.9 - 3.8 cm LVOT Diameter 1.9 cm Aortic Root Diameter 2.5 cm LA Systolic Diameter LX 3.6 cm 3.0 - 4.0 / 2.7 - 3.8 cm LA Volume 88.0 cm 18 - 58 / 22 - 52 cm Ascending Aorta Diameter 2.6 cm DOPPLER AV Peak Velocity 119.0 cm/s AV Peak Gradient 5.7 mmHg AV Mean Velocity 73.2 cm/s AV Mean Gradient 3.0 mmHg AV Velocity Time Integral 24.5 cm AI Deceleration [place] 303.5 cm/s AI Peak Velocity 477.0 cm/s AI Pressure Half Time 464.0 ms AI Peak Gradient 91.0 mmHg LVOT Peak Velocity 120.0 cm/s LVOT Peak Gradient 5.8 mmHg LVOT Mean Velocity 60.1 cm/s LVOT Mean Gradient 2.0 mmHg LVOT Velocity Time Integral 22.2 cm LVOT Stroke Volume 62.9 cm AV Area Cont Eq vti 2.6 cm AV Area Cont Eq pk 2.9 cm MV Peak Velocity 145.0 cm/s MV Peak Gradient 8.4 mmHg MV Mean Velocity 71.7 cm/s MV Mean Gradient 3.0 mmHg Mitral E Point Velocity 112.0 cm/s Mitral A Point Velocity 133.0 cm/s Mitral E to A Ratio 0.8 MV PHT Velocity 115.0 cm/s MV Deceleration [place] 373.0 cm/s MV Pressure Half Time 92.5 ms MV Area PHT 2.4 cm MV Deceleration Time 310.0 ms PV Peak Velocity 109.0 cm/s PV Peak Gradient 4.8 mmHg PV Mean Velocity 71.6 cm/s PV Mean Gradient 2.0 mmHg PV Velocity Time Integral 25.1 cm LV E' Lateral Velocity 2.7 cm/s Mitral E to LV E' Lateral Ratio 41.0 LV E' Septal Velocity 3.9 cm/s Mitral E to LV E' Septal Ratio 28.7
[2017-12-13 19:50] VITALS: BP 210/98
[2017-12-14 07:11] VITALS: BP 200/92
--- NOTE | 2017-12-14 07:12 | PN- Housestaff ---
Petros Martinez 12/14/17710: Subjective Follow-up For: CVA Malignant hypertension Complaints: wants to get out of bed Subjective: Patient seen and examined lying in the bed. Overall no complaints, would like to be moved to the chair to have some movement. Looking forward to MRI today and voices hopes to be walking again soon. Patient admitted to this physician her recent cocaine use prior to the stroke. Denies any pain. Denies fever/chills/ night sweats/chest pain/abdominal pain/urinary symptoms. Review of Systems Constitutional: Reports: see HPI. Objective Last 24 Hrs of Vital Signs/I&O Vital Signs Date Time Temp Pulse Resp B/P B/P Pulse O2 O2 Flow FiO2 Mean Ox Delivery Rate 12/14 0939 66 210/100 12/14 0939 66 210/100 12/14 0745 210/100 12/14 0711 98.6 75 18 200/92 96 Room Air 12/13 1950 98.4 67 18 210/98 97 Room Air 12/13 1549 68 202/98 12/13 1452 97.8 61 18 210/98 92 Room Air 12/13 1400 97.9 61 18 204/94 97 Room Air 12/13 1215 98.1 78 18 202/98 97 Intake & Output 12/14 1600 12/14 0800 12/14 0000 Intake Total 300 Output Total 300 Balance -300 300 Intake, Oral 300 Output, Urine 300 Patient 146 lb Weight Physical Exam General Appearance: Alert, Oriented X3, Cooperative, No Acute Distress HEENT: Atraumatic, PERRLA, EOMI, Mucous Membr. moist/pink Cardiovascular: Regular Rate, Normal S1, Normal S2, No Murmurs, Gallops, Rubs Lungs: Clear to Auscultation, Normal Air Movement Abdomen: Soft, No Tenderness, No Hepatospenomegaly Neurological: Normal Speech, Normal Tone, Sensation Intact, strength 5/5 left u& le; 1/5 right u&le, slightly asymmetric face Current Medications: Current Medications Sig/[place] Start time Last Medication Dose Route Stop Time Status Admin Acetaminophen 650 MG Q6P PRN 12/13 011 AC PO Acetaminophen 1,000 MG Q6 PRN 12/13 011 AC IV Amlodipine Besylate 10 MG DAILY 12/13 0745 AC 12/14 PO 0939 Aspirin 81 MG DAILY 12/15 0900 AC PO Aspirin 81 MG DAILY 12/14 0900 DC PO Aspirin 325 MG DAILY 12/13 1015 DC 12/13 PO 1018 Atorvastatin Calcium 80 MG 1700 12/13 0700 AC 12/13 PO 1018 Clopidogrel Bisulfate 75 MG DAILY 12/14 0900 AC 12/14 PO 0939 Docusate Sodium 100 MG DAILY NEEDED 12/13 0115 AC PO Losartan Potassium 100 MG DAILY 12/14 0900 AC 12/14 PO 0939 Losartan Potassium 100 MG ONCE ONE 12/13 1430 DC 12/13 PO 12/13 1431 1549 Melatonin 5 MG AT BEDTIME 12/13 0115 AC 12/13 PO 2115 Nicotine 14 MG DAILY 12/13 09 AC 12/14 TOP 0939 Ondansetron HCl 4 MG ONCE ONE 12/14 1100 UNVr PO 12/14 1101 Polyethylene Glycol 17 GM 0912/14 0900 AC 12/14 PO 0938 Polyethylene Glycol 17 GM AT BEDTIME 12/13 2100 DC PO Senna/Docusate Sodium 1 TAB BID 12/14 1012 AC PO Assessment/Plan Assessment: 67 year old female PMH of HTN and previous stroke 15 years ago without residual deficits presents with R-sided weakness and slurring of speech, likely acute ischemic stroke. CT Head: No acute intracranial hemorrhage or territorial infarction. Chronic infarct in the posteromedial left parietal lobe and left occipital lobe. Possibility of a focal acute ischemic process cannot be ruled out. Problems: #Acute ischemic stroke #Hypertensive emergency #recent cocaine use #Active tobacco use Plan: -Admit to telemetry -Patient passed bedside swallow eval, ok to start diet chopped/thin -Follow-up speech swallow eval -Neurology consult -Follow up PT/OT evaluations; suggesting intensive acute rehabilitation -Permissive hypertension to be stopped; reinitiate home blood pressure medications -MRI head showed small acute lacunar thalamic infarct -Nicotine patch & smoking cessation DVT prophylaxis: ALPS & on Plavix Heart healthy diet Patient is full code Problem List: 1. CVA (cerebral vascular accident) 2. Hypertensive emergency Pain Ratin Pain Location: none Pain Goal: Remain pain free Pain Plan: Tylenol Tomorrow's Labs & Rationales: KAYLEE Rossi MD,Ana 12/14/17 1042: Attending MD Review Statement Attending Statement Attending MD Statement: examined this patient, discuss w/resident/PA/DRY CHARGE PROCESS ATTENDANT, agreed w/resident/PA/DRY CHARGE PROCESS ATTENDANT, reviewed EMR data (avail), discussed with nursing, discussed with case mgmt, reviewed images Attending Assessment/Plan: 87-year-old female past medical history of previous CVA and hypertension who is here with what appears to be an acute hemispheric CVA with right hemiplegia. The strength is slightly better today and she can move it against gravity. We are pending an MRI and have started on dual antiplatelet therapy. We allowed for permissive hypertension but when now going to control her pressure. She had a hypertensive emergency requiring IV hydralazine. Her pressure remains elevated and I am restarting her Lasix and adding a beta-zohaib.
[2017-12-14 07:45] VITALS: BP 210/100
--- NOTE | 2017-12-14 10:30 | Discharge Summary ---
See Addendum Visit Information Visit Dates Admission Date: 12/12/17 Discharge Date: 12/18/17 Hospital Course Course Attending Physician: Flo HARTMAN,Ana Dunaway Primary Care Physician: Patient Has No Primary Care Dr Consulting Request: Consulting Specialty: Neurology Consulting Physician: Dr. Garcia Reason for Consult: Ischemic stroke Hospital Course: This is a 67 year old female with pmh of HTN as well as prior stroke 15 years ago without residual deficits who presented to the ED with new-onset right-sided weakness and slurring of speech. The patient had been sitting at home when she first noticed numbness on her right side she then went to lie down and when she awoke about six hours prior to presentation at she could not move her right side and called an ambulance. She denied headache, loss of vision, word-finding difficulty. She reports that she regularly takes her blood pressure medicine, but admits that she ran out and had been unable to get a refill for the past month. Patient was admitted to the telemetry floor and we managed her for the following conditions. Acute ischemic stroke Patient had stroke involving the posterior medial left parietal lobe and left occipital lobe resulting in right hemiparesis which we anticipated to be due to uncontrolled hypertension as the patient has not been taking her medications and presented with blood pressure of around 220 systolic. She presented off the window for TPA and because of that was not given. She passed bedside swallow evaluation and received formal swallow evaluation from speech therapist for which she passed for chopped foods. This patient remains to have multiple risk for repeated strokes because of continuous smoking and not adhering to medications. She was extensively counseled during the course of the stay to take her medication regularly. Patient will need to be on dual antiplatelet for at least a month post discharge. Patient is being discharged to custodial facility to continue with rehabilitation to regain functionality. She lives with a friend and has been fairly independent prior to this episode. Hypertensive emergency Patient with history of hypertension and on 2 medications but not compliant with medication. She was profoundly hypotensive on presentation and to be allowed permissive hypertension because of high ischemic stroke. Patient has been reeducated further on her medications and doing to continue taking antihypertensive medication she was taking previously and the one we restarted during the course of this admission. Patient was started on 2 new antihypertensive medication to try to control her pressure on top of the 3 she was taking on presentation. This patient who is requiring 5 medication to control pressure needs workout as an outpatient for secondary causes of hypertension. The patient does not want to follow with heart regular primary care physician Dr. Paulino and will give referral to Dr. Umana to follow-up for further workup and control of blood pressure. Nicotine dependence Patient with history of cigarette smoking who is still an active smoker. Cigarette smoking itself is a risk for stroke and patient was counseled on the importance of abstaining from cigarettes. Dysphagia with aspiration Swallow evaluation postadmission showed that the patient cannot tolerate chopped food only. However, the patient tried to eat regular foods and was seen to have episodes of aspiration. She was reeducated on the importance of sticking to the prescribed consistent of diet and will need to have her follow-up swallow evaluation to ensure her safety and avoid risk of aspiration pneumonia which was stipulated clearly to the patient. Complications: Right-sided hemiparesis Allergies: Coded Allergies: No Known Allergies (12/12/17) Significant Procedures: Head MRI - Small acute lacunar infarct in the left lateral thalamus. No large territory infarction, lobar hemorrhage, or mass. - Old cortical infarcts and left parietal and occipital lobes and multiple old lacunar infarcts in the bilateral centrum semiovale, hill radiata, basal ganglia, thalami, carrie, and cerebellum. - Moderate small vessel ischemic changes in the cerebral white matter. Disposition Summary Disposition Principal Diagnosis: Ischemic stroke Hypertensive emergency Uncontrolled hypertension on multiple medications Dysphagia with aspiration risk Additional Diagnosis: Hypertension Nicotine dependence Discharge Disposition: SNF Discharge Instructions General Discharge Information Code Status: Full Code Patient's Diet: INVERMART diet Patient's Activity: As tolerated Follow-Up Instructions/Appts: Please call and make a follow-up with her primary care physician within 1 week after discharge we are giving him a referral to [facility] practice PCP Sury Coleman. Medications at Discharge Discharge Medications: Continue taking these medications: Amlodipine Besylate (Norvasc) 10 MG TABLET 1 Tablet ORAL DAILY Qty = 60 Comments: Last Taken:12/16/17 Time: 0848 Losartan (Cozaar) 100 MG TABLET 1 Tablet ORAL DAILY Qty = 60 Comments: Last Taken: 12/16/17 Time:0847 Furosemide (Lasix) 40 MG TABLET 1 Tablet ORAL DAILY Qty = 60 Comments: Last Taken:12/16/17 Time:0848 Start taking the following new medications: Clopidogrel Bisulfate (Plavix) 75 MG TABLET 75 Milligram ORAL DAILY Qty = 60 No Refills Comments: Last Taken:12/16/17 Time:0848 Atorvastatin Calcium (Atorvastatin Calcium) 80 MG TABLET 80 Milligram ORAL 5 PM Qty = 60 No Refills Comments: Last Taken:12/15/17 Time:1643 Aspirin (Aspirin*) 81 MG TAB.CHEW 81 Milligram ORAL DAILY Qty = 60 No Refills Comments: Last Taken:12/16/17 Time:0848 Hydralazine HCl (Hydralazine HCl) 10 MG TABLET 10 Milligram ORAL THREE TIMES DAILY Qty = 90 No Refills Copies To: Jeanne Umana MD; Yasmin Garcia MD 10 Milligram ORAL THREE TIMES DAILY Qty = 90 No Refills Copies To: Jeanne Umana MD; Yasmin Garcia MD
--- NOTE | 2017-12-14 11:39 | MRI REPORT ---
EXAMINATION: MR BRAIN WITHOUT CONTRAST CLINICAL INFORMATION: Stroke. Hemiparesis. COMPARISON: Head CT 12/12/2017. TECHNIQUE: Multiplanar, multisequence imaging of the brain was performed without intravenous contrast. \H\ \N\FINDINGS: There is a small acute lacunar infarct in the left lateral thalamus. No large territory infarction is seen. A focus of susceptibility signal in the right posterior hippocampus is compatible with a chronic microhemorrhage. No lobar hemorrhage is seen. Old chronic cortical infarcts are present in the left parietal and left occipital lobes. Multiple old lacunar infarcts are present within the bilateral centrum semiovale, hill radiata, basal ganglia, thalami, carrie, and cerebellar hemispheres. Additional moderate scattered foci of T2 prolongation in the bilateral cerebral white matter likely reflects moderate degree of small vessel ischemic change. The ventricles are normal in size without evidence of hydrocephalus. The major arterial flow voids are preserved at the skull base. A small amount of fluid signal is seen in the mastoids. The orbital contents appear normal. A subcentimeter cyst in the right upper labial region is incidentally noted. IMPRESSION: - Small acute lacunar infarct in the left lateral thalamus. No large territory infarction, lobar hemorrhage, or mass. - Old cortical infarcts and left parietal and occipital lobes and multiple old lacunar infarcts in the bilateral centrum semiovale, hill radiata, basal ganglia, thalami, carrie, and cerebellum. - Moderate small vessel ischemic changes in the cerebral white matter.
[2017-12-14 14:52] VITALS: BP 182/100
[2017-12-14 15:41] VITALS: BP 190/96
--- NOTE | 2017-12-14 15:41 | Event Note ---
Event Note Event Note: Situation: 67 year old female PMH of HTN and previous stroke 15 years ago without residual deficits presents with R-sided weakness and slurring of speech, likely acute ischemic stroke. She now has persistent right hemiparesis. Around 3:15, a rapid response was called due to the patient falling out of a chair while attempting to urinate. On examination: Patient was alert, oriented, stating she had no complaints. Specifically, did not hit her head on the way down. Fell directly out of chair straight down onto the floor, contacting with her gluteus. Patient had no cardiac or pulmonary changes on physical exam. Assessment and plan: 67 year old hemiparesis patient with mechanical fall from chair onto floor. Physical exam after the event was benign. No labs or rads tests were ordered. Patient to remain on fall precautions.
--- NOTE | 2017-12-14 16:03 | PN- Neurology ---
Subjective Subjective: Feels well, taking po's, worked w/ PT OT ST Objective Vital Signs and I&Os Vital Signs Date Time Temp Pulse Resp B/P B/P Pulse O2 O2 Flow FiO2 Mean Ox Delivery Rate 12/14 1541 98.0 76 18 190/96 95 Room Air 12/14 1452 98.2 68 18 182/100 96 Room Air 12/14 1413 66 170/100 12/14 0939 66 210/100 12/14 0939 66 210/100 12/14 0745 210/100 12/14 0711 98.6 75 18 200/92 96 Room Air 12/13 1950 98.4 67 18 210/98 97 Room Air Intake & Output 12/14 1600 12/14 0800 12/14 0000 12/13 1600 12/13 0800 12/13 0000 Intake Total 400 300 Output Total 200 300 Balance 200 -300 300 Intake, Oral 400 300 Output, Urine 200 300 Patient 146 lb 145 lb 145 lb Weight Physical Exam: A & O x 3 Speech fluent Min dysarthria (improved) R UE 0 to 1/5 R LE 2-/5 Current Medications: Current Medications Sig/Aislinn Start time Last Medication Dose Route Stop Time Status Admin Acetaminophen 650 MG Q6P PRN 12/13 011 AC PO Acetaminophen 1,000 MG Q6 PRN 12/13 0115 AC IV Amlodipine Besylate 10 MG DAILY 12/13 0745 AC 12/14 PO 0939 Aspirin 81 MG DAILY 12/15 0900 DC PO Aspirin 81 MG DAILY 12/14 1200 AC PO Aspirin 81 MG DAILY 12/14 0900 DC 12/14 PO 1144 Aspirin 325 MG DAILY 12/13 1015 DC 12/13 PO 1018 Atorvastatin Calcium 80 MG 1700 12/13 0700 AC 12/13 PO 1018 Clopidogrel Bisulfate 75 MG DAILY 12/14 0900 AC 12/14 PO 0939 Docusate Sodium 100 MG DAILY NEEDED 12/13 0115 AC PO Furosemide 40 MG DAILY 12/14 1300 AC 12/14 PO 1412 Losartan Potassium 100 MG DAILY 12/14 0900 AC 12/14 PO 0939 Melatonin 5 MG AT BEDTIME 12/13 0115 AC 12/13 PO 2115 Metoprolol Tartrate 12.5 MG BID 12/14 1300 AC 12/14 PO 1413 Nicotine 14 MG DAILY 12/13 0900 AC 12/14 TOP 0939 Ondansetron HCl 4 MG ONCE ONE 12/14 1100 DC 12/14 PO 12/14 1101 1104 Polyethylene Glycol 17 GM 0900 12/14 0900 AC 12/14 PO 0938 Polyethylene Glycol 17 GM AT BEDTIME 12/13 2100 DC PO Senna/Docusate Sodium 1 TAB BID 12/14 1012 AC 12/14 PO 1144 Results Recent Imaging Studies: MRI brain comparion: Head CT 12/12/2017. TECHNIQUE: Multiplanar, multisequence imaging of the brain was performed without intravenous contrast. \H\ \N\FINDINGS: There is a small acute lacunar infarct in the left lateral thalamus. No large territory infarction is seen. A focus of susceptibility signal in the right posterior hippocampus is compatible with a chronic microhemorrhage. No lobar hemorrhage is seen. Old chronic cortical infarcts are present in the left parietal and left occipital lobes. Multiple old lacunar infarcts are present within the bilateral centrum semiovale, hill radiata, basal ganglia, thalami, carrie, and cerebellar hemispheres. Additional moderate scattered foci of T2 prolongation in the bilateral cerebral white matter likely reflects moderate degree of small vessel ischemic change. The ventricles are normal in size without evidence of hydrocephalus. The major arterial flow voids are preserved at the skull base. A small amount of fluid signal is seen in the mastoids. The orbital contents appear normal. A subcentimeter cyst in the right upper labial region is incidentally noted. IMPRESSION: - Small acute lacunar infarct in the left lateral thalamus. No large territory infarction, lobar hemorrhage, or mass. - Old cortical infarcts and left parietal and occipital lobes and multiple old lacunar infarcts in the bilateral centrum semiovale, hill radiata, basal ganglia, thalami, carrie, and cerebellum. - Moderate small vessel ischemic changes in the cerebral white matter. DICTATED BY: Remigio Frankel MD DATE/TIME DICTATED:12/14/171128 MARGARINE MAKER:BUDDY DATE/TIME TRANSCRIBED:12/14/171128 CONFIDENTIAL, DO NOT COPY WITHOUT APPROPRIATE AUTHORIZATION. <Electronically signed in Other Vendor System> SIGNED BY: Remigio Frankel MD 12/14/17 113 CAROTID US IMPRESSION: 1. RIGHT: Minimal, nonhemodynamically significant stenosis of the proximal right internal carotid artery corresponding to a 0-49% stenosis by velocity criteria. 2. LEFT: Minimal, nonhemodynamically significant stenosis of the proximal left internal carotid artery corresponding to a 0-49% stenosis by velocity criteria. 3. No evidence for hemodynamically significant stenosis in the external carotid arteries. DICTATED BY: Tashi Villegas MD DATE/TIME DICTATED:12/13/171249 Echo 12-13: FINDINGS Left Ventricle Severe concentric left ventricular hypertrophy. Normal size left ventricle. Left ventricular ejection fraction is estimated at 55 %. No obvious regional wall motion abnormalities. Abnormal relaxation filling pattern of the left ventricle for age (stage 1 diastolic dysfunction). Assessment/Plan Assessment: Small acute infarct L thalamus Mod R HP Plan: Cont ASA, statin, DVT proph Start bringing down BP Excellent acute rehab candidate
[2017-12-14 22:47] VITALS: BP 184/90
[2017-12-14 22:51] VITALS: BP 184/90
[2017-12-15 06:36] VITALS: BP 180/80
--- NOTE | 2017-12-15 07:07 | PN- Housestaff ---
Petros Martinez 12/15/17 0707: Subjective Follow-up For: CVA Hypertensive urgency secondary to uncontrolled malignant hypertension Complaints: upset that she soiled herself Subjective: Patient seen and examined lying in the bed. Overall no complaints, except that she recently soiled herself and had to be cleaned. Also complained of nausea, given Zofran. Yesterday fell out of the chair while attempting to go to the restroom, rapid response was called with no sustained injuries. Denies any pain. Denies fever/chills/night sweats/chest pain/abdominal pain/urinary symptoms. Review of Systems Constitutional: Reports: see HPI. Objective Last 24 Hrs of Vital Signs/I&O Vital Signs Date Time Temp Pulse Resp B/P B/P Pulse O2 O2 Flow FiO2 Mean Ox Delivery Rate 12/15 0904 62 170/104 12/15 0903 62 170/104 12/15 0903 62 170/108 12/15 0636 98.2 62 20 180/80 95 Room Air 12/14 2251 99.0 59 20 184/90 91 Room Air 12/14 2125 60 172/80 12/14 1541 98.0 76 18 190/96 95 Room Air 12/14 1452 98.2 68 18 182/100 96 Room Air 12/14 1413 66 170/100 Intake & Output 12/15 1600 12/15 0800 12/15 0000 Intake Total 110 400 Output Total 100 300 Balance 10 100 Intake, Oral 110 400 Output, Urine 100 300 Physical Exam General Appearance: Alert, Cooperative, No Acute Distress Skin: No Rashes, No Breakdown, No Significant Lesion Skin Temp/Moisture Exam: Warm/Dry Cardiovascular: Regular Rate, Normal S1, Normal S2, No Murmurs, Gallops, Rubs Lungs: Clear to Auscultation, decreased air movement Abdomen: Soft, No Tenderness, No Hepatospenomegaly Neurological: Normal Speech, Normal Tone, Sensation Intact, strength 5/5 L U&L ext; strength 1/5 R U&L ext Extremities: No Clubbing, No Cyanosis, No Edema Current Medications: Current Medications Sig/Aislinn Start time Last Medication Dose Route Stop Time Status Admin Acetaminophen 650 MG Q6P PRN 12/13 114 AC PO Acetaminophen 1,000 MG Q6 PRN 12/13 114 AC IV Amlodipine Besylate 10 MG DAILY 12/13 744 AC 12/15 PO 0904 Aspirin 81 MG DAILY 12/15 0900 DC PO Aspirin 81 MG DAILY 12/14 1200 AC 12/15 PO 0903 Atorvastatin Calcium 80 MG 1700 12/13 0700 AC 12/14 PO 1739 Clopidogrel Bisulfate 75 MG DAILY 12/14 0900 AC 12/15 PO 0903 Docusate Sodium 100 MG DAILY NEEDED 12/13 0115 AC PO Furosemide 40 MG DAILY 12/14 1300 AC 12/15 PO 0903 Losartan Potassium 100 MG DAILY 12/14 0900 AC 12/15 PO 0903 Melatonin 5 MG AT BEDTIME 12/13 0115 AC 12/14 PO 2123 Metoprolol Tartrate 12.5 MG BID 12/14 1300 AC 12/15 PO 0903 Nicotine 14 MG DAILY 12/13 09 AC 12/14 TOP 0939 Ondansetron HCl 4 MG ONCE ONE 12/15 0745 DC 12/15 PO 12/15 0746 0810 Ondansetron HCl 4 MG ONCE ONE 12/14 1100 DC 12/14 PO 12/14 1101 1104 Polyethylene Glycol 17 GM 0912/14 0900 AC 12/14 PO 0938 Senna/Docusate Sodium 1 TAB BID 12/14 1012 AC 12/15 PO 0903 Last 24 Hrs of Lab/Jf Results Last 24 Hrs of Labs/Mics: Laboratory Tests 12/15/17 0635: Anion Gap 8, Estimated GFR 45 L, BUN/Creatinine Ratio 14.2 Orders Radiology Findings: SERVICE DATE: 12/14/17 EXAM TYPE: MRI - MRI-HEAD W/O RAMESH EXAMINATION: MR BRAIN WITHOUT CONTRAST CLINICAL INFORMATION: Stroke. Hemiparesis. COMPARISON: Head CT 12/12/2017. TECHNIQUE: Multiplanar, multisequence imaging of the brain was performed without intravenous contrast. \H\ \N\FINDINGS: There is a small acute lacunar infarct in the left lateral thalamus. No large territory infarction is seen. A focus of susceptibility signal in the right posterior hippocampus is compatible with a chronic microhemorrhage. No lobar hemorrhage is seen. Old chronic cortical infarcts are present in the left parietal and left occipital lobes. Multiple old lacunar infarcts are present within the bilateral centrum semiovale, hill radiata, basal ganglia, thalami, carrie, and cerebellar hemispheres. Additional moderate scattered foci of T2 prolongation in the bilateral cerebral white matter likely reflects moderate degree of small vessel ischemic change. The ventricles are normal in size without evidence of hydrocephalus. The major arterial flow voids are preserved at the skull base. A small amount of fluid signal is seen in the mastoids. The orbital contents appear normal. A subcentimeter cyst in the right upper labial region is incidentally noted. IMPRESSION: - Small acute lacunar infarct in the left lateral thalamus. No large territory infarction, lobar hemorrhage, or mass. - Old cortical infarcts and left parietal and occipital lobes and multiple old lacunar infarcts in the bilateral centrum semiovale, hill radiata, basal ganglia, thalami, carrie, and cerebellum. - Moderate small vessel ischemic changes in the cerebral white matter. Assessment/Plan Assessment: 67 year old female PMH of HTN and previous stroke 15 years ago without residual deficits presents with R-sided weakness and slurring of speech, likely acute ischemic stroke. CT Head: No acute intracranial hemorrhage or territorial infarction. Chronic infarct in the posteromedial left parietal lobe and left occipital lobe. Possibility of a focal acute ischemic process cannot be ruled out. Problems: #Acute ischemic stroke #Hypertensive emergency #recent cocaine use #Active tobacco use Plan: -Admit to telemetry -Patient passed bedside swallow eval, ok to start diet chopped/thin -Follow-up speech swallow eval -Neurology consult -Follow up PT/OT evaluations; suggesting intensive acute rehabilitation -Permissive hypertension to be stopped; reinitiate home blood pressure medications -Cardiology consulted for recommendations for blood pressure control -MRI head showed small acute lacunar thalamic infarct -Nicotine patch & smoking cessation DVT prophylaxis: ALPS & on Plavix Heart healthy diet Patient is full code Problem List: 1. CVA (cerebral vascular accident) 2. Hypertensive emergency Pain Ratin Pain Location: none Pain Goal: Remain pain free Pain Plan: Tylenol Tomorrow's Labs & Rationales: BEP if stays overnight; possible discharge today Discharge Plan Discharge Disposition: STR/MS Ana Rossi MD 12/15/17 0952: Attending MD Review Statement Attending Statement Attending MD Statement: examined this patient, discuss w/resident/PA/MEAT COUNTER CLERK, agreed w/resident/PA/MEAT COUNTER CLERK, reviewed EMR data (avail), discussed with nursing, discussed with case mgmt, reviewed images Attending Assessment/Plan: Patient strength in the right upper extremity and right lower extremity appears slightly better today. The MRI did show the thalamic infarct. My worry is that resistant hypertension. She is on 4 drugs including a beta-zohaib, Lasix, arm and Norvasc and he can barely get the pressure down to 1 6170. Will have cardiology see her, PT is actively working with her and will follow-up.
--- NOTE | 2017-12-15 10:23 | Cons- Cardiology ---
General Information and HPI Consulting Request Date of Consult: 12/15/17 Requested By: Flo HARTMAN,Ana Dunaway History of Present Illness: 67 year old patient with PMH of hypertension with some difficulty taking her medication regularly due to financial issues, stroke without residual deficits at the age of 52, cocaine use, cigarette smoking. No known CAD. On 12/09, mrs Hussein first experienced acute right sided weakness and aphasia, from which she recovered within a few hours. A few days later, the same symptoms recurred, the patient was unable to get out of her bed and fell on the floor when her spouse attempted to help her up, and was then brought to the ED, where a diagnosis of left thalamic infarct was made. The patient's BP upon admission was >210mmHg systolic and 110mmHg diastolic, she denied chest pains. She states that in the weeks preceding the event, she had been unable to obtain her blood pressure medication due to financial issues. She had also used cocain a few days preceding the initial event on 12/09. Since admission, her BP control has been better, with syst BP ~ 180 mmHg and diastolic 90-105 mmHg, she is relatively bradycardic with HR 55-60, asymptomatic , denies chest pains, dizziness, shortness of breath, orthopnea. She has regained a little strength in her right arm and leg and speech is less slurred but remains with significant deficits. Allergies/Medications Allergies: Coded Allergies: No Known Allergies (12/12/17) Home Med List: Amlodipine Besylate (Norvasc) 10 MG TABLET 1 TAB PO DAILY HTN (Reported) Aspirin (Aspirin*) 81 MG TAB.CHEW 81 MG PO DAILY STROKE Atorvastatin Calcium 80 MG TABLET 80 MG PO 1700 STROKE Clopidogrel Bisulfate (Plavix) 75 MG TABLET 75 MG PO DAILY STROKE Furosemide (Lasix) 40 MG TABLET 1 TAB PO DAILY HTN (Reported) Losartan (Cozaar) 100 MG TABLET 1 TAB PO DAILY HTN (Reported) Metoprolol Tartrate 25 MG TABLET 12.5 MG PO BID HTN Current Medications: Current Medications Sig/Aislinn Start time Last Medication Dose Route Stop Time Status Admin Acetaminophen 650 MG Q6P PRN 12/13 011 AC PO Acetaminophen 1,000 MG Q6 PRN 12/13 011 AC IV Amlodipine Besylate 10 MG DAILY 12/13 0745 AC 12/15 PO 09 Aspirin 81 MG DAILY 12/15 0900 DC PO Aspirin 81 MG DAILY 12/14 1200 AC 12/15 PO 0903 Atorvastatin Calcium 80 MG 1700 12/13 0700 AC 12/14 PO 1739 Clopidogrel Bisulfate 75 MG DAILY 12/14 0900 AC 12/15 PO 0903 Docusate Sodium 100 MG DAILY NEEDED 12/13 0115 AC PO Furosemide 40 MG DAILY 12/14 1300 AC 12/15 PO 0903 Losartan Potassium 100 MG DAILY 12/14 0900 AC 12/15 PO 0903 Melatonin 5 MG AT BEDTIME 12/13 0115 AC 12/14 PO 2123 Metoprolol Tartrate 12.5 MG BID 12/14 1300 AC 12/15 PO 0903 Nicotine 14 MG DAILY 12/13 0900 AC 12/14 TOP 0939 Ondansetron HCl 4 MG ONCE ONE 12/15 0745 DC 12/15 PO 12/15 0746 0810 Ondansetron HCl 4 MG ONCE ONE 12/14 1100 DC 12/14 PO 12/14 1101 1104 Polyethylene Glycol 17 GM 0900 12/14 0900 AC 12/14 PO 0938 Senna/Docusate Sodium 1 TAB BID 12/14 1012 AC 12/15 PO 0903 Past History Travel History Traveled to [place] past 21 day No Medical History Neurological: CVA EENT: NONE Cardiovascular: hypertension Respiratory: asthma, COPD, pneumonia Gastrointestinal: NONE Hepatic: NONE Renal: NONE Musculoskeletal: NONE Psychiatric: NONE (cocaine), substance abuse Endocrine: NONE Surgical History Surgical History: none Psychosocial History Where Do You Live? Home Smoking Status: Current Everyday Smoker ETOH Use: occasional use Illicit Drug Use: cocaine (on tox screen) Exam & Diagnostic Data Vital Signs and I&O Vital Signs Date Time Temp Pulse Resp B/P B/P Pulse O2 O2 Flow FiO2 Mean Ox Delivery Rate 12/15 0904 62 170/104 12/15 0903 62 170/104 12/15 0903 62 170/108 12/15 0636 98.2 62 20 180/80 95 Room Air 12/14 2251 99.0 59 20 184/90 91 Room Air 12/14 2125 60 172/80 12/14 1541 98.0 76 18 190/96 95 Room Air 12/14 1452 98.2 68 18 182/100 96 Room Air 12/14 1413 66 170/100 Intake & Output 12/15 1600 12/15 0800 09/20 0000 12/14 1600 12/14 0800 12/14 0000 Intake Total 110 400 400 300 Output Total 100 300 200 300 Balance 10 100 200 -300 300 Intake, Oral 110 400 400 300 Output, Urine 100 300 200 300 Patient 146 lb Weight Physical Exam: General Appearance Alert, Oriented X3, Cooperative, No Acute Distress HEENT PERRLA, right sided drooping of the mouth Neck Supple, No JVD, trachea midline Cardiovascular Regular Rate, Normal S1, Normal S2, No Murmurs, no rub Lungs Clear to Auscultation, Normal Air Movement bilaterally Abdomen Normal Bowel Sounds, Soft, No Tenderness Neurological Sensation Intact, RUE strength 2/5, RLE 0/5; LUE and LLE 5/5, alert oriented, speech is a little slurred. Extremities posterior tibial pulses palpated bilaterally, No Edema Labs/Jf Results: Laboratory Tests 12/15 0635 Chemistry Sodium (137 - 145 mmol/L) 139 Potassium (3.5 - 5.1 mmol/L) 4.2 Chloride (98 - 107 mmol/L) 109 H Carbon Dioxide (22 - 30 mmol/L) 22 Anion Gap (5 - 16) 8 BUN (7 - 17 mg/dL) 17 Creatinine (0.5 - 1.0 mg/dL) 1.2 H Estimated GFR (>60 ml/min) 45 L BUN/Creatinine Ratio (7 - 25 %) 14.2 Assessment/Plan Assessment/Plan Left thalamic stroke likely secondary to hypertensive emergency (or vice versa) in patient with known cerebral vascular disease and long standing history of hypertension, inconsistent use of medication and occasional use of cocaine. Her BP is high, most people would normalize their BP with 48-72hrs, we would prefer BP ~140/90, but due to long standing poorly controlled hypertension, it is a little more difficult to break the hypertensive response in the patient. I would add norvasc 10 mg at this time and follow. Echocardiogram to come. Consult Acknowledgment - Thank you for your consult request.
[2017-12-15 14:23] VITALS: BP 193/87
[2017-12-15 14:35] VITALS: BP 184/104
[2017-12-15] MEDS ORDERED: METOPROLOL TART25 M1 PO (15:03)
[2017-12-15] MEDS ORDERED: ATORVASTATIN CA80 M1 PO (15:03)
[2017-12-15] MEDS ORDERED: ASPIRIN81 M4 PO (15:03)
[2017-12-15] MEDS ORDERED: PLAVIX75 M1 PO (15:03)
--- NOTE | 2017-12-15 15:07 | Patient Discharge Instructions ---
Discharge Instructions General Discharge Information You were seen/treated for: Ischemic Stroke Hypertensive emergency Special Instructions: Please call and make a F/U with your PCP Dr Umana within one week after discharge Please call and make a F/U with neurologist Dr Garcia within one week after discharge Please take your medications Acute Coronary Syndrome Inclusion Criteria At DC or during hospital stay patient has or had the following: ACS DIAGNOSIS No Discharge Core Measures Meds if any: Prescribed or Continued at Discharge DANIEL/ARB if EF <40% No Meds if any: NOT Prescribed or Continued at Discharge Congestive Heart Failure Inclusion Criteria At DC or during hospital stay patient has or had the following: CHF DIAGNOSIS No Discharge Core Measures Meds if any: Prescribed or Continued at Discharge Meds if any: NOT Prescribed or Continued at Discharge Cerebrovascular accident Inclusion Criteria At DC or during hospital stay patient has or had the following: CVA/TIA Diagnosis Yes Discharge Core Measures Meds if any: Prescribed or Continued at Discharge Antithrombotic Yes Statin (required if LDL =>70) Yes Anticoagulant No Meds if any: NOT Prescribed or Continued at Discharge Venous thromboembolism Inclusion Criteria VTE Diagnosis No VTE Type NONE VTE Confirmed by (Test) NONE Discharge Core Measures - Per Current guidelines, there needs to be overlap - treatment for the first 5 days of Warfarin therapy. - If discharged on Warfarin prior to 5 days of - overlap therapy, the patient will need to be - assessed for post discharge needs including - *Post discharge parental anticoagulation - *Warfarin and/or parental anticoagulation education - *Follow up date to check INR post discharge At least 5 days overlap therapy as Inpatient No Meds if any: Prescribed or Continued at Discharge Note: Overlap Therapy is Warfarin and Anticoagulant Meds if any: NOT Prescribed or Continued at Discharge
[2017-12-15 16:49] VITALS: BP 170/90
[2017-12-15 22:00] VITALS: BP 158/82
[2017-12-16 06:30] VITALS: BP 170/78
--- NOTE | 2017-12-16 10:16 | PN- Housestaff ---
Petros Martinez 12/16/17 1016: Subjective Follow-up For: CVA Hypertensive emergency secondary to uncontrolled malignant hypertension Complaints: no complaints Subjective: Patient seen and examined with boyfriend sitting by bedside. Overall no complaints. Patient given Zofran ODT for nausea. Denies any pain. Denies fever /chills/night sweats/chest pain/abdominal pain/urinary symptoms. Ready to be discharged to short-term rehab later today. Review of Systems Constitutional: Reports: see HPI. Objective Last 24 Hrs of Vital Signs/I&O Vital Signs Date Time Temp Pulse Resp B/P B/P Pulse O2 O2 Flow FiO2 Mean Ox Delivery Rate 12/16 0949 59 172/72 12/16 0848 59 172/72 12/16 0848 59 172/72 12/16 0847 59 172/72 12/16 0630 98.6 60 20 170/78 94 12/15 2200 98.0 58 18 158/82 97 12/15 1649 170/90 12/15 1435 184/104 12/15 1423 97.9 51 16 193/87 94 Room Air Intake & Output 12/16 1600 12/16 0800 12/16 0000 Intake Total 120 120 Output Total 300 450 Balance -180 -330 Intake, Oral 120 120 Output, Urine 300 450 Patient 146 lb Weight Weight Bed scale Measurement Method Physical Exam General Appearance: Alert, Oriented X3, Cooperative, No Acute Distress Skin: No Rashes, No Breakdown, No Significant Lesion Skin Temp/Moisture Exam: Warm/Dry Cardiovascular: Regular Rate, Normal S1, Normal S2, No Murmurs, Gallops, Rubs Lungs: Clear to Auscultation, decreased air movement Abdomen: Soft, No Tenderness, No Hepatospenomegaly, No Masses Neurological: Normal Speech, Normal Tone, Sensation Intact, strength 5/5 L extremities; 2/5 R extremities Current Medications: Current Medications Sig/Aislinn Start time Last Medication Dose Route Stop Time Status Admin Acetaminophen 650 MG Q6P PRN 12/13 011 AC PO Acetaminophen 1,000 MG Q6 PRN 12/13 011 AC IV Amlodipine Besylate 10 MG DAILY 12/13 0745 AC 12/16 PO 0848 Aspirin 81 MG DAILY 12/14 1200 AC 12/16 PO 0848 Atorvastatin Calcium 80 MG 1700 12/13 07 AC 12/15 PO 1643 Clopidogrel Bisulfate 75 MG DAILY 12/14 08 AC 12/16 PO 0848 Docusate Sodium 100 MG DAILY NEEDED 12/13 0115 AC PO Furosemide 40 MG DAILY 12/14 1300 AC 12/16 PO 0848 Hydralazine HCl 10 MG TID 12/16 0900 AC 12/16 PO 0949 Losartan Potassium 100 MG DAILY 12/14 0900 AC 12/16 PO 0847 Melatonin 5 MG AT BEDTIME 12/13 0115 AC 12/15 PO 2101 Metoprolol Tartrate 12.5 MG BID 12/14 1300 AC 12/16 PO 0848 Nicotine 14 MG DAILY 12/13 09 AC 12/14 TOP 0939 Ondansetron HCl 4 MG ONCE ONE 12/16 0830 DC PO 12/16 0831 Polyethylene Glycol 17 GM 0912/14 09 AC 12/16 PO 0848 Senna/Docusate Sodium 1 TAB BID 12/14 1012 AC 12/16 PO 0848 Last 24 Hrs of Lab/Jf Results Last 24 Hrs of Labs/Mics: Laboratory Tests 12/16/17 0650: Anion Gap 6, Estimated GFR 41 L, BUN/Creatinine Ratio 13.1 Assessment/Plan Assessment: Assessment: 67 year old female PMH of HTN and previous stroke 15 years ago without residual deficits presents with R-sided weakness and slurring of speech, likely acute ischemic stroke. CT Head: No acute intracranial hemorrhage or territorial infarction. Chronic infarct in the posteromedial left parietal lobe and left occipital lobe. Possibility of a focal acute ischemic process cannot be ruled out. Problems: #Acute ischemic stroke #Hypertensive emergency #recent cocaine use #Active tobacco use Plan: -Admit to telemetry -Patient passed bedside swallow eval, ok to start diet chopped/thin -Follow-up speech swallow eval -Neurology consult -Follow up PT/OT evaluations; suggesting intensive acute rehabilitation -Reinitiated home blood pressure medications -Cardiology consulted for recommendations for blood pressure control; followed -MRI head showed small acute lacunar thalamic infarct -Nicotine patch & smoking cessation counseling -Plan for discharge to acute rehab today DVT prophylaxis: ALPS & on Plavix Heart healthy diet Patient is full code Problem List: 1. CVA (cerebral vascular accident) 2. Hypertensive emergency Pain Ratin Pain Location: none Pain Goal: Remain pain free Pain Plan: Tylenol Tomorrow's Labs & Rationales: none; planned discharge Consulting Request: Consulting Specialty: Dermatology Consulting Physician: Dr. Garcia Reason for Consult: Ischemic stroke Flo HARTMAN,Ana 12/16/17 1032: Attending MD Review Statement Attending Statement Attending MD Statement: examined this patient, discuss w/resident/PA/SMART GRID ENGINEER, agreed w/resident/PA/SMART GRID ENGINEER, discussed with family, reviewed EMR data (avail), discussed with nursing, discussed with case mgmt, reviewed images Attending Assessment/Plan: 67-year-old female here with acute hemispheric infarct and hypertensive emergency. We have now added hydralazine for good blood pressure control, echo is okay and she stable to leave to rehab with close outpatient follow-up. She will need workup for secondary causes of hypertension as an outpatient.
[2017-12-16] MEDS ORDERED: HYDRALAZINE HCL10 M1 PO (11:53)
[2017-12-16 22:49] VITALS: BP 128/62
--- NOTE | 2017-12-16 23:55 | PN- Cardiology ---
Objective Vital Signs and I&Os Vital Signs Date Time Temp Pulse Resp B/P B/P Pulse O2 O2 Flow FiO2 Mean Ox Delivery Rate 12/169 99.5 64 18 128/62 93 Room Air 12/162 Room Air 12/169 62 162/80 12/16 1435 54 164/70 12/16 0949 59 172/72 12/16 0848 59 172/72 12/16 0848 59 172/72 12/16 0847 59 172/72 12/16 0630 98.6 60 20 170/78 94 Intake & Output 12/16 1600 12/16 0800 12/16 0000 12/15 1600 12/15 0800 12/15 0000 Intake Total 360 120 120 360 110 400 Output Total 300 450 100 300 Balance 360 -180 -330 360 10 100 Intake, Oral 360 120 120 360 110 400 Number 0 1 Bowel Movements Output, Urine 300 450 100 300 Patient 146 lb 146 lb Weight Weight Bed scale Measurement Method Current Medications: Current Medications Sig/Aislinn Start time Last Medication Dose Route Stop Time Status Admin Acetaminophen 650 MG Q6P PRN 12/13 011 AC PO Acetaminophen 1,000 MG Q6 PRN 12/13 011 AC IV Amlodipine Besylate 10 MG DAILY 12/13 0745 AC 12/16 PO 0848 Aspirin 81 MG DAILY 12/14 1200 AC 12/16 PO 0848 Atorvastatin Calcium 80 MG 1700 12/13 07 AC 12/16 PO 1610 Clopidogrel Bisulfate 75 MG DAILY 12/14 09 AC 12/16 PO 0848 Docusate Sodium 100 MG DAILY NEEDED 12/13 0115 DC PO Furosemide 40 MG DAILY 12/14 1300 AC 12/16 PO 0848 Hydralazine HCl 10 MG TID 12/16 899 AC 12/16 PO 1939 Lorazepam 0.5 MG BID PRN 12/16 1545 AC PO 12/23 1544 Losartan Potassium 100 MG DAILY 12/14 09 AC 12/16 PO 0847 Melatonin 5 MG AT BEDTIME 12/13 011 AC 12/16 PO 1939 Metoprolol Tartrate 12.5 MG BID 12/14 1300 DC 12/16 PO 0848 Nicotine 14 MG DAILY 12/13 09 AC 12/14 TOP 0939 Ondansetron HCl 4 MG ONCE ONE 12/16 0830 DC PO 12/16 0831 Polyethylene Glycol 17 GM 0912/14 0900 DC 12/16 PO 0848 Senna/Docusate Sodium 1 TAB BID 12/14 1012 DC 12/16 PO 0848 Results Last 48 Hrs of Labs/Mics: Laboratory Tests 12/16/17 0650: Anion Gap 6, Estimated GFR 41 L, BUN/Creatinine Ratio 13.1 12/15/17 0635: Anion Gap 8, Estimated GFR 45 L, BUN/Creatinine Ratio 14.2
--- NOTE | 2017-12-17 05:22 | PN- Housestaff ---
See Addendum Subjective Follow-up For: Cerebrovascular accident Hypertensive emergency Cocaine use Nicotine dependence Complaints: no complaints Tele-Events Since Last Visit: Sinus bradycardia and sinus rhythm 55-66 bpm Subjective: Physical the patient lying comfortably on the bed not in any acute distress. The patient reports to have slept very well. She has been doing exercises on how weaker right upper limb. She is in good spirits and waiting for acute rehabilitation. Review of Systems Constitutional: Denies: chills, fever. Cardiovascular: Denies: chest pain, palpitations. Respiratory: Denies: cough, short of breath. Gastrointestinal: Denies: abdominal pain, nausea, vomiting. Comments: All other systems reviewed and are negative Objective Last 24 Hrs of Vital Signs/I&O Vital Signs Date Time Temp Pulse Resp B/P B/P Pulse O2 O2 Flow FiO2 Mean Ox Delivery Rate 12/16 2249 99.5 64 18 128/62 93 Room Air 12/162 Room Air 12/16 1939 62 162/80 12/16 1435 54 164/70 12/16 0949 59 172/72 12/16 0848 59 172/72 12/16 0848 59 172/72 12/16 0847 59 172/72 12/16 0630 98.6 60 20 170/78 94 Intake & Output 12/17 0800 12/17 0000 12/16 1600 Intake Total 360 Output Total Balance 360 Intake, Oral 360 Number 0 Bowel Movements Patient 148 lb Weight Physical Exam General Appearance: Alert, Oriented X3, Cooperative, No Acute Distress Skin: No Rashes Skin Temp/Moisture Exam: Warm/Dry HEENT: Atraumatic, Mucous Membr. moist/pink Neck: Supple, No JVD Cardiovascular: Regular Rate, Normal S1, Normal S2 Lungs: Clear to Auscultation Abdomen: Normal Bowel Sounds, Soft Neurological: Normal Speech, Sensation Intact, left upper limb has normal power in the right upper and lower 2/5 Extremities: No Clubbing, No Cyanosis Current Medications: Current Medications Sig/Aislinn Start time Last Medication Dose Route Stop Time Status Admin Acetaminophen 650 MG Q6P PRN 12/13 114 AC PO Acetaminophen 1,000 MG Q6 PRN 12/13 114 AC IV Amlodipine Besylate 10 MG DAILY 12/13 0745 AC 12/16 PO 0848 Aspirin 81 MG DAILY 12/14 1200 AC 12/16 PO 0848 Atorvastatin Calcium 80 MG 1700 12/13 0700 AC 12/16 PO 1610 Clopidogrel Bisulfate 75 MG DAILY 12/14 0900 AC 12/16 PO 0848 Docusate Sodium 100 MG DAILY NEEDED 12/13 0115 DC PO Furosemide 40 MG DAILY 12/14 1300 AC 12/16 PO 0848 Hydralazine HCl 10 MG TID 12/16 899 AC 12/16 PO 1939 Lorazepam 0.5 MG BID PRN 12/16 1545 AC PO 12/23 1544 Losartan Potassium 100 MG DAILY 12/14 09 AC 12/16 PO 0847 Melatonin 5 MG AT BEDTIME 12/13 0115 AC 12/16 PO 1939 Metoprolol Tartrate 12.5 MG BID 12/14 1300 DC 12/16 PO 0848 Nicotine 14 MG DAILY 12/13 09 AC 12/14 TOP 0939 Ondansetron HCl 4 MG ONCE ONE 12/16 0830 DC PO 12/16 0831 Polyethylene Glycol 17 GM 0912/14 0900 DC 12/16 PO 0848 Senna/Docusate Sodium 1 TAB BID 12/14 1012 DC 12/16 PO 0848 Last 24 Hrs of Lab/Jf Results Last 24 Hrs of Labs/Mics: Laboratory Tests 12/16/17 0650: Anion Gap 6, Estimated GFR 41 L, BUN/Creatinine Ratio 13.1 Assessment/Plan Assessment: This is a 67 year old female with pmh of HTN as well as prior stroke 15 years ago without residual deficits who presented to the ED with new-onset right-sided weakness and slurring of speech. The patient had been sitting at home when she first noticed numbness on her right side she then went to lie down and when she awoke about six hours prior to presentation at she could not move her right side and called an ambulance. She denied headache, loss of vision, word-finding difficulty. She reports that she regularly takes her blood pressure medicine, but admits that she ran out and had been unable to get a refill for the past month. Patient was found to have positive cocaine in urine. Patient was admitted to the telemetry floor and we managed her for the following conditions. Acute ischemic stroke Patient had stroke involving the posterior medial left parietal lobe and left occipital lobe resulting in right hemiparesis which we anticipated to be due to uncontrolled hypertension as the patient has not been taking her medications and presented with blood pressure of around 220 systolic. She presented off the window for TPA and because of that was not given. She passed bedside swallow evaluation and received formal swallow evaluation from speech therapist for which she passed for chopped foods. This patient remains to have multiple risk for repeated strokes because of continuous smoking and not adhering to medications. Patient blood pressure is now controlled on hydralazine 10 mg 3 times a day, losartan 100 mg daily and amlodipine 10 mg daily with continuation of home Lasix 40 mg daily. Continue to monitor blood pressure and renal functions. Patient has been cleared for discharge but cannot go because the acute rehabilitation does not admit during the weekend. Hypertensive emergency Patient with history of hypertension and on 2 medications but not compliant with medication. She was profoundly hypertensive on presentation and to be allowed permissive hypertension because of high ischemic stroke. Patient has been reeducated further on her medications and doing to continue taking antihypertensive medication she was taking previously and the one we restarted during the course of this admission. Patient was started on 2 new antihypertensive medication to try to control her pressure on top of the 3 she was taking on presentation. This patient who is requiring 4 medication to control pressure needs workout as an outpatient for secondary causes of hypertension. Workup for secondary hypertension as outpatient. Nicotine dependence Patient with history of cigarette smoking who is still an active smoker. Cigarette smoking itself is a risk for stroke and patient was counseled on the importance of abstaining from cigarettes. Dysphagia with aspiration Swallow evaluation postadmission showed that the patient cannot tolerate chopped food only. However, the patient tried to eat regular foods and was seen to have episodes of aspiration. She was reeducated on the importance of sticking to the prescribed consistent of diet and will need to have her follow-up swallow evaluation to ensure her safety and avoid risk of aspiration pneumonia which was stipulated clearly to the patient. Cocaine abuse Patient found to have posterior urine test for cocaine on presentation. Initially was started on beta zohaib but we stopped it because of potential risky with active cocaine user. Please consider avoiding beta blockers until the patient is clean of cocaine. Problem List: 1. Hypertensive emergency 2. Hypertension 3. CVA (cerebral vascular accident) 4. Cocaine abuse Pain Ratin Pain Location: None Pain Goal: Remain pain free Pain Plan: When necessary pain meds Tomorrow's Labs & Rationales: Check renal function slightly worsened on DVT/Prophylaxis: pharmacological Consulting Request: Consulting Specialty: Dermatology Consulting Physician: Dr. Garcia Reason for Consult: Ischemic stroke Discharge Plan Discharge Disposition: awaiting STR/NH placement Stable for Discharge? Yes Anticipated Discharge (Day): tomorrow If Discharged Today/In 24 Hrs: enter [facility] discharge ord, W-10/discharge paper done, DC summary done, CMR done
[2017-12-17 06:50] VITALS: BP 142/80
[2017-12-17 08:36] VITALS: BP 182/78
[2017-12-17 09:30] VITALS: BP 155/70
[2017-12-17 14:06] VITALS: BP 152/70
[2017-12-17 14:46] VITALS: BP 130/72
[2017-12-17 23:15] VITALS: BP 158/78
[2017-12-18 04:17] VITALS: BP 210/90
[2017-12-18 07:54] VITALS: BP 180/78
--- NOTE | 2017-12-18 08:44 | PN- Housestaff ---
See Addendum Subjective Follow-up For: CVA Hypertensie emergency secondary to uncontrolled malignant hypertension Complaints: no complaints Subjective: Patient seen and examined sitting in the chair. Overall no complaints. Denies any pain. Denies fever/chills/night sweats/chest pain/abdominal pain/urinary symptoms. Pending insurance review, which delayed discharge from Tuesday, patient is ready to be discharged to acute rehab later today. Review of Systems Constitutional: Reports: see HPI. Objective Last 24 Hrs of Vital Signs/I&O Vital Signs Date Time Temp Pulse Resp B/P B/P Pulse O2 O2 Flow FiO2 Mean Ox Delivery Rate 12/18 09 67 148/60 12/18 0808 64 180/78 12/18 0808 64 180/78 12/18 0807 64 180/78 12/18 0800 98 Room Air 12/18 0754 67 180/78 12/18 0437 70 210/90 12/18 0417 99.0 75 20 210/90 98 Room Air 12/17 2315 99.2 65 18 158/78 93 Room Air 12/17 2200 Room Air 12/17 2046 68 158/60 12/17 1600 98 Room Air 12/17 1446 98.0 60 20 130/72 98 Room Air 12/17 1407 69 152/70 12/17 1406 63 152/70 Intake & Output 12/18 1600 12/18 0800 12/18 0000 Intake Total 240 Output Total Balance 240 Intake, Oral 240 Number 1 Bowel Movements Patient 148 lb Weight Physical Exam General Appearance: Alert, Oriented X3, Cooperative, No Acute Distress Skin: No Rashes, No Breakdown, No Significant Lesion Skin Temp/Moisture Exam: Warm/Dry Cardiovascular: Regular Rate, Normal S1, Normal S2, No Murmurs, Gallops, Rubs Lungs: Clear to Auscultation, decreased air movement Abdomen: Soft, No Tenderness, No Hepatospenomegaly Neurological: Normal Speech, Normal Tone, Sensation Intact, strength 5/5 L extremities, 2/5 R extremities Current Medications: Current Medications Sig/[place] Start time Last Medication Dose Route Stop Time Status Admin Acetaminophen 650 MG Q6P PRN 12/13 114 AC PO Acetaminophen 1,000 MG Q6 PRN 12/13 114 AC IV Amlodipine Besylate 10 MG DAILY 12/13 0745 AC 12/18 PO 0808 Aspirin 81 MG DAILY 12/14 1200 AC 12/18 PO 0807 Atorvastatin Calcium 80 MG 1700 12/13 0700 AC 12/17 PO 1740 Clopidogrel Bisulfate 75 MG DAILY 12/14 0900 AC 12/18 PO 0808 Furosemide 40 MG DAILY 12/14 1300 AC 12/18 PO 0808 Hydralazine HCl 10 MG ONCE ONE 12/18 0430 DC 12/18 PO 12/18 0431 0437 Hydralazine HCl 10 MG TID 12/16 0900 AC 12/18 PO 0807 Lorazepam 0.5 MG BID PRN 12/16 1545 AC PO 12/23 1544 Losartan Potassium 100 MG DAILY 12/14 0900 AC 12/18 PO 0808 Melatonin 5 MG AT BEDTIME 12/13 0115 AC 12/17 PO 2046 Nicotine 14 MG DAILY 12/13 09 AC 12/14 TOP 0939 Last 24 Hrs of Lab/Jf Results Last 24 Hrs of Labs/Mics: Laboratory Tests 12/18/17 0650: Anion Gap 6, Estimated GFR 45 L, BUN/Creatinine Ratio 13.3 Assessment/Plan Assessment: 67 year old female PMH of HTN and previous stroke 15 years ago without residual deficits presents with R-sided weakness and slurring of speech, likely acute ischemic stroke. CT Head: No acute intracranial hemorrhage or territorial infarction. Chronic infarct in the posteromedial left parietal lobe and left occipital lobe. Possibility of a focal acute ischemic process cannot be ruled out. Problems: #Acute ischemic stroke #Hypertensive emergency #recent cocaine use #Active tobacco use Plan: -Admit to telemetry -Patient passed bedside swallow eval, ok to start diet chopped/thin -Follow-up speech swallow eval -Neurology consult -Follow up PT/OT evaluations; suggesting intensive acute rehabilitation -Reinitiated home blood pressure medications, + hydralazine; toprol stopped due to cocaine use -Cardiology consulted for recommendations for blood pressure control; followed -MRI head showed small acute lacunar thalamic infarct -Nicotine patch & smoking cessation counseling -Plan for discharge to acute rehab today, despite delay from Tuesday DVT prophylaxis: ALPS & on Plavix Heart healthy diet Patient is full code Problem List: 1. CVA (cerebral vascular accident) 2. Hypertensive emergency 3. Cocaine abuse Pain Ratin Pain Location: none Pain Goal: Remain pain free Pain Plan: per pain patheway Tomorrow's Labs & Rationales: NONE; anticipated discharge today Consulting Request: Consulting Specialty: Dermatology Consulting Physician: Dr. Garcia Reason for Consult: Ischemic stroke Discharge Plan Discharge Disposition: STR/NH Stable for Discharge? Yes Anticipated Discharge (Day): today
[2017-12-18 09:23] VITALS: BP 148/60
[2017-12-18 11:56] VITALS: BP 148/60
[2017-12-18 13:24] VITALS: BP 158/70
[2017-12-18 13:28] VITALS: BP 158/70
== END 2017-12-18 13:50 | DRG 65 ==
LOC: ERH 21:27 → ERHI 23:31 → 1NO 23:31 → ERH 12-13 00:18 → ERHI 12-13 07:33 → ENRESERV 12-13 11:59 → ENTRNSPT 12-13 12:53 → EDTRNSPTSTS 12-13 12:55 → EDTRNSPT 12-13 12:55 → CMPTRNSPT 12-13 13:25 → 1NO 12-13 13:36 → CMPBEDREQ 12-13 15:09 → 1NO 12-14 21:23 → ENPENDDIS 12-18 11:47 → 1NO 12-18 12:47
PROVIDERS: Emergency Medicine; Student in an Organized Health Care Education/Training Program
DX: I63.8 Other cerebral infarction (principal); G81.91 Hemiplegia, unspecified affecting right dominant side; I16.1 Hypertensive emergency; I10 Essential (primary) hypertension; Z86.73 Personal history of transient ischemic attack (TIA), and cerebral infarction without residual deficits; J44.9 Chronic obstructive pulmonary disease, unspecified; Z91.14 Patient's other noncompliance with medication regimen; R47.1 Dysarthria and anarthria; R29.709 NIHSS score 9; F14.10 Cocaine abuse, uncomplicated; F17.210 Nicotine dependence, cigarettes, uncomplicated; W07.XXXA Fall from chair, initial encounter; Y92.230 Patient room in hospital as the place of occurrence of the external cause
CPT/HCPCS: 1NP; 1NSP; 70551; 83036; ERO; 36415; 36592; 71045; 80307; 81001; 82436; 93005; 93010; 93306; 94799; 97110-GO; 97112-GO; 97116-GO; 97161-GP; 97166-GO; 97530-GO; J0360; J3101; J3490